=== PATIENT | male | born 1945 | race Caucasian/White ===

== ENCOUNTER 2025-07-15 16:48 | Inpatient (IN) | payer OTHER, SELFPAY ==
[2025-07-15] VITALS (8 sets, daily range): BP systolic 108–137; BP diastolic 59–103; BMI 10126.5; BMI 26.4
[2025-07-15 15:10] LABS: Hematocrit 34.3 % (39.0-52.0); Hemoglobin 11.9 g/dL (13.0-18.0); Mean Corp Hgb Conc. 34.7 g/dL (33.0-37.0); Mean Corpuscular Volume 78.0 fL (80.0-94.0); Nucleated Red Blood Cells % 0 % (-); Platelet Count 285 10^3/uL (130-400); Red Cell Dist. Width 15.4 % (11.5-14.5)
--- NOTE | 2025-07-15 15:11 | ED.GENMED ---
History of Present Illness
General
Chief Complaint: Wound Check/Suture Removal
Source: patient and ambulance crew
Exam Limitations: none
Time Seen by Provider: 07/15/25 15:01
Nursing documentation reviewed up to this point in time: agreed with
History of Present Illness
History of Present Illness:
80-year-old male with a past medical history of paraplegia after fall off of a porch in the 60s with chronic urinary retention requiring Oakley catheter who presents to the emergency department via EMS from home where he lives with a dry cleaner presser for
evaluation of sacral wound. Apparently patient had visiting dry cleaner presser today who evaluated his sacral wound�it sounds like this has been generally worsening over time and there was noted to be discharge and foul odor which prompted ER referral.
Patient says that he cannot feel his bottom and so he has not had any pain. He has not noticed fever or chills or any other acute complaints.
Review of Systems
Review of Systems
All Other Systems: ROS reviewed and negative except as documented in HPI and ROS
Constitutional: Denies fever
Respiratory: Denies trouble breathing
Cardiac: Denies chest pain
ABD/GI: Denies abdominal pain
Skin: Reports other (Sacral wound)
Phy Exam
Physical Exam
Physical Exam:
General: Awake, alert, oriented x 3; very hard of hearing; no acute distress
Head: Normocephalic, atraumatic
Eyes: Conjunctiva normal
Throat: Airway intact, handling secretions
Neck: Trachea midline
Lungs: Breathing comfortably with no respiratory distress
Heart: Regular rate
Abd: Soft, non distended, nontender; chronic Oakley catheter noted
Rectal: Significant external hemorrhoids noted
Skin: Patient has unstageable sacral wound which probes at least 3 cm deep with foul odor and purulent drainage (pictured below)
Extremities: Warm and well-perfused, marked edema with chronic venous stasis changes bilaterally
Scores
Heart Failure Risk
Heart Failure Risk Score: Not Applicable
Heart Score for Chest Pain Patients
STEMI patient?: Not applicable
Withdrawal Assessment of Alcohol
Withdrawal Assessment Completed?: Not applicable
Course
Orders/Labs/Results
Orders:
Orders
07/15/25 15:05
CBC/With Diff [Complete Blood Count/With Diff] Urgent
CMP [Comprehensive Metabolic Panel] Urgent
07/15/25 15:08
Wound Culture [Wound/Abscess/Other Culture] Urgent
CURTIS Source: Sacral
Specimen Description:
Date Specimen was Collected: 07/15/25
Time Specimen was Collected: 15:22
07/15/25 15:10
WOUND/OSTOMY CONSULT Routine
Reason for Consult: sacral wound
07/15/25 15:17
Piperacillin/Tazo 3.375 Gram [Zosyn] 3.375 gram in 50 ml IV NOW
Vancomycin [Vancocin] 2,000 mg 0.9% Sodium Chloride 500 ml [Nss] 500 ml IV NOW
07/15/25 15:21
Lactate Level [Lactic Acid] Urgent
07/15/25 15:26
Osmolality, Random Urine Urgent
Urine Sodium Urgent
07/15/25 15:29
NEPHROLOGY CONSULT Urgent
Consulting Provider: Janay Carreon
Was physician already notified: Yes
07/15/25 15:30
Blood Culture Q30M
CURTIS Source: Blood/Venous
Specimen Description:
07/15/25 16:00
Blood Culture Q30M
CURTIS Source: Blood/Venous
Specimen Description:
Abnormal Lab Results
07/15/25
15:05
WBC 18.3 H 10^3/uL
(4.8-10.8)
RBC 4.40 L 10^6/uL
(4.70-6.10)
Hgb 11.9 L g/dL
(13.0-18.0)
Hct 34.3 L %
(39.0-52.0)
MCV 78.0 L fL
(80.0-94.0)
RDW 15.4 H %
(11.5-14.5)
Abs Immat Gran (auto) 0.2 H 10^3/uL
(0-0.05)
Absolute Neuts (auto) 16.0 H 10^3/uL
(1.4-6.5)
Absolute Lymphs (auto) 0.5 L 10^3/uL
(1.2-3.4)
Absolute Monos (auto) 1.4 H 10^3/uL
(0.1-0.6)
Immature Gran % 1.3 H %
(0-0.5)
Neutrophils % 87.6 H %
(42.2-75.2)
Lymphocytes % 2.7 L %
(20.5-51.1)
Sodium 121 L mmol/L
(135-145)
Chloride 95 L mmol/L
(98-107)
Carbon Dioxide 19 L mmol/L
(22-30)
BUN 57 H mg/dl
(9-20)
Creatinine 1.4 H mg/dL
(0.7-1.3)
Albumin 3.1 L g/dl
(3.5-5.0)
07/15/25 15:05
07/15/25 15:05
Vital Signs
Initial and Last Documented VS:
Initial Vital Signs
Temp Pulse Ox
36.7 C 100
07/15/25 14:51 07/15/25 14:51
Last Documented Vital Signs
Temp Pulse Resp BP Pulse Ox
36.7 C 97 24 121/103 94
07/15/25 14:51 07/15/25 15:15 07/15/25 15:15 07/15/25 15:00 07/15/25 15:17
MDM/Problems Addressed
Differential Diagnosis Includes:
Sacral wound infection
MDM/Problems Addressed:
80-year-old male who with history as noted presents with scented to the ER for worsening sacral wound with foul odor and drainage�overall concerning for sacral wound infection. Will plan to send wound culture, send basic labs. May need MRI to
evaluate for signs of osteomyelitis as wound tracks quite deep. Will likely need debridement and wound care. Will plan for IV antibiotics, consult in to wound nurse. Discussed with hospitalist service for admission.
Labs reviewed and his CBC showed leukocytosis to 18.3. His heart rate is in the 90s and so added blood cultures as well as a lactate prior to administering antibiotics. Will proceed with empiric antibiotics once blood cultures drawn.
Chemistry shows significant hyponatremia with a sodium of 121. Glucose 75. Will send urine sodium and osmolality. Fluid restrict pending urine studies. Discussed with nephrology for consultation. I also discussed with general surgery for
consultation as I suspect wound will ultimately need debridement.
Chronic conditions affecting care:
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
*Pulse Oximetry
SaO2: 94
Oxygen Mode of Delivery: Room air
Patient hypoxic: no (94%)
*Critical Care Note
Total Time (30-74mins, 75-104mins- exclusive of procedures): Not Applicable
Data Reviewed
Source: patient, records and ambulance crew
Patient Management
Discussion with other providers: Hospitalist (Discussed with hospitalist) and Production Quality Analyst (Discussed with nephrology, discussed with general surgeon)
Escalation/DeEscalation of care consider admission/obs:
Admission indicated
ED Attending Note
-
Portions of this chart may have been created with voice recognition software.� Occasional wrong word or��sound alike� substitutions may have occurred due to the inherent limitations of voice recognition software.
Discharge Plan
Departure
Patient Disposition: Admit
Date of Disposition: 07/15/25
Time of Disposition: 15:18
Admit to doctor: Kevin
Presentation/result/management discussed w/ accepting MD/DO: Hospitalist
Discharge Problem:
Sacral wound, Infected wound, Hyponatremia
Prescriptions:
No Action
aspirin,buffd-calcium carb-mag 325 mg Tablet
325 mg PO DAILYPRN PRN (Reason: headaches)
uccyrpyqjpztd-XX-omoelivzcvbcy 5-10-325 mg/15 mL Liquid
15 ml PO DAILYPRN PRN (Reason: cough)
cholecalciferol (vitamin D3) [Vitamin D3] 25 mcg (1,000 unit) Tablet
25 mcg PO DAILY
polyethylene glycol 3350 17 gram Powder In Packet
17 g PO DAILY 30 Days Qty: 30 0RF
Rx Instructions:
hold if regular bowel movements and/or diarrhea
sennosides-docusate sodium [Senna Plus] 8.6-50 mg Tablet
1 tab PO BID 30 Days Qty: 60 0RF
Rx Instructions:
hold if regular bowel movements or diarrhea
losartan 50 mg tablet
50 mg PO DAILY 30 Days Qty: 30 0RF
Interventions
Interventions:
*Risk Screen - Suicide Last Done: 07/15/25 14:51
*Neglect/Abuse Screening Last Done: 07/15/25 14:51
ED-Skin Assessment Last Done: 07/15/25 15:17
Discharge Date and Time
Print Language: SIERRA LEONEAN
--- NOTE | 2025-07-15 15:22 | WOUNDNOTE ---
Pt has unstageable pressure ulcer on his sacrum upon arrival to ER. Pt was sent here for this wound by home health nurse. Provider documented with pictures in chart. Wound care to be contacted.
[2025-07-15 15:24] LABS: ALT (SGPT) 21 U/L (0-50); AST (SGOT) 31 U/L (17-59); Albumin 3.1 g/dl (3.5-5.0); Alkaline Phosphatase 94 U/L (38-126); Blood Urea Nitrogen 57 mg/dl (9-20); Calcium 8.4 mg/dl (8.4-10.2); Carbon Dioxide 19 mmol/L (22-30); Chloride 95 mmol/L (98-107); Estimated Creatinine Clearance -4 ml/min; Glucose 75 mg/dl (70-99); Potassium 4.7 mmol/L (3.5-5.1); Sodium 121 mmol/L (135-145); Total Protein 6.4 g/dl (6.3-8.2); eGFR 50.81
--- NOTE | 2025-07-15 15:47 | HPS.HSE ---
Addendum entered and electronically signed by Aj Brown MD 07/15/25 17:48:
This is an addendum to H&P written by Annemarie Herron on 07/15/2025. �Patient seen and examined independently with CLINICAL CYTOPATHOLOGIST.
80-year-old male past medical history of paraplegia status post fall resulting in T11 fracture in the , chronic indwelling Oakley catheter, microcytic anemia, right lower extremity DVT status post IVC filter since removed, hypertension,
presenting with infected sacral wound has foul smelling. �Also left ankle wound. �Patient bilateral cerumen impaction with hearing impairment.
Vital signs unremarkable. Sacral decub probing to bone and tracking.�
Labs show sodium of 121. �Creatinine 1.4. �Leukocytosis of 18. �Anemia of 11.9 improved from previously.
Patient with sepsis secondary to infected unstageable sacral decubitus ulcer likely osteomyelitis.� Also with DEEP and hyponatremia likely hypovolemic. �Wound culture, blood cultures. �Vancomycin/Zosyn. Check pelvic MRI.� General surgery consulted
for debridement. �Check urine sodium, osmolality. �Nephrology consulted for hyponatremia.
Debrox for bilateral cerumen impaction.�
Original Note:
Family Physician
-
Family Physician: VINAY Garrido
Chief Complaint
-
Sacral wound with malodorous discharge unable to hear both ears
History of Present Illness
80-year-old male from home where he lives alone however has caregiver for 7 hours from 8 AM to 3 PM he is able to use a Mustapha lift from his ceiling to get onto a wheelchair and prepare his own foods and get self back in the chair. He came to the ER
today due to a sacral wound with discharge that is malodorous. He is unable to feel from his umbilicus down due to prior T11 fracture in the . He also has chronic bilateral leg lymphedema with reported left ankle wound currently wrapped with
Randy wrap's. He states he has wound care coming out Sunday along with a nurse dressing his left ankle he is also complaining he is unable to hear from both ears. This is due to bilateral cerumen impaction the patient was unaware
of. He denies headache, fever, chills, chest pain, palpitations, cough, nausea, vomiting, diarrhea.
He past medical history Paraplegia status post fall resulting in T11 fracture , chronic lymphedema bilateral lower legs chronic indwelling Oakley catheter, microcytic anemia, right femoral shaft fracture s/p surgical fixation 11/24/2022, Right
lower extremity DVT peroneal/popliteal 11/24/2022 with IVC filter placement then removal(01/18/2023), history of COVID 11/24/2022
Medical History
Past Medical History
Past Medical History: Reports Other
Additional Past Medical History:
Paraplegia status post fall resulting in T11 fracture
Chronic indwelling Oakley catheter,
Microcytic anemia
Right femoral shaft fracture s/p surgical fixation 11/24/2022
Right lower extremity DVT peroneal/popliteal 11/24/2022 with IVC filter placement then removal(01/18/2023)
history of COVID 11/24/2022
Past Surgical History: Reports Other
Additional Past Surgical History:
Right femoral shaft fracture s/p surgical fixation 11/24/2022
Right lower extremity DVT peroneal/popliteal 11/24/2022 with IVC filter placement then removal(01/18/2023)
Social History
Tobacco: Non-smoker
Alcohol: None
Drug: None
Personal: Single
Living: Alone
Employment: Disabled
Family History
Family History: Not pertinent
Allergies / Home Medications
Allergies reflects when Allergies were last updated in [employer].
Home Medications with original date entered in [employer]
Allergy/Medication List:
Allergies
Allergy/AdvReac Type Severity Reaction Status Date / Time
No Known Allergies Allergy Unverified 11/24/22 13:46
Home Medications
aspirin,buffered (calcium carbonate-magnesium) 325 mg tablet (Bufferin) 325 mg PO DAILYPRN PRN headaches 11/24/22
cephalexin 500 mg capsule 500 mg PO QID 07/15/25
Review of Systems
-
History Source: Patient
A 12 point ROS was completed and negative except as noted: Yes
Constitutional: Denies Fatigue or Chills
EENT: Reports Other (Unable to hear both ears due to bilateral cerumen impactions); Denies Sore Throat or Runny Nose
Respiratory: Denies Cough or Trouble Breathing
Cardiac: Denies Chest Pain, Diaphoresis or Palpitations
Abdomen/GI: Reports Other (Chronic Oakley catheter); Denies Abdominal Pain, Nausea, Vomiting or Diarrhea
: Reports Oakley (Chronic Oakley catheter POA)
Musculoskeletal: Reports Edema (Chronic bilateral leg lymphedema with reported chronic left ankle wound per patient Randy wrap's in place on admission); Denies Joint Pain
Skin: Reports Other (Unstageable sacral/right buttocks wound); Denies Itching or Rash
Neurological: Denies Dizzy or Headache
Endocrine: Reports No Symptoms
Hematologic/Lymphatic: Reports No Symptoms
Psych: Reports Calm
Physical Exam
Vital Signs
Vital Signs
Temp Pulse Resp BP Pulse Ox
98.0 F 97 24 121/103 94
07/15/25 14:51 07/15/25 15:15 07/15/25 15:15 07/15/25 15:00 07/15/25 15:17
Physical Exam
General: No Fever or Chills
HEENT: NormoCephalic, Anicteric, PERRLA, [place] Conjunctivae, No Ptosis, Hearing Impaired (Due to bilateral cerumen impaction) and Other (Missing most dentition)
Respiratory: Clear; No Wheezes, Rales or Rhonchi
Cardiac: S1/S2, Regular Rhythm and Peripheral Edema (Chronic bilateral leg lymphedema); No Murmur, Rub or Gallop
Breast: Deferred by me
GI: Soft, Non Tender, Non Distended, Normal Bowel Sounds and No Hepatosplenomegaly
Rectal: Deferred by Provider
Genito-urinary: Oakley (Chronic present on admission)
Musculoskeletal: No Clubbing, No Cyanosis, Edema, Left Lower Extremity (Chronic lymphedema) and Edema, Right Lower Extremity (Chronic lymphedema); No Edema, Left Upper Extremity or Edema, Right Upper Extremity
Skin: Warm, Dry and Decubitus Ulcers (Unstageable sacral/right buttocks, reported left ankle wound underneath of current Randy wrap's); No Rash
Neuro: AO x 3, Cranial Nerves Intact and Other (Unable to hear due to bilateral cerumen impaction, paraplegia from umbilicus down); No Slurred Speech, Facial Droop, Tremors or Sedated
Psych: Calm
Laboratory Results
-
07/15/25 15:05
07/15/25 15:05
Laboratory Results
Total Bilirubin 0.6 mg/dl (0.2-1.3) 07/15/25 15:05
AST 31 U/L (17-59) 07/15/25 15:05
ALT 21 U/L (0-50) 07/15/25 15:05
Alkaline Phosphatase 94 U/L (38-126) 07/15/25 15:05
Data Reviewed
-
Lab Data: Labs Reviewed by me
Impression/Plan
-
Impression/plan:
Admit to MedSurg
#Sepsis secondary to infected sacral wound unstageable/
#History of paraplegia status post fall resulting in T11 fracture 1960s
- WBC 18.3 with left shift, HR 97 , 121/103
- Consult surgery Dr. Mckeon aware
- Consult wound care
- IV vancomycin IV Zosyn
-Follow CBC, CMP
- PT/OT consult
- MRI sacrum pelvis to rule out osteo
#Left ankle wound POA due to paraplegia
#Chronic lymphedema bilateral lower legs
-Consult wound care
Patient with bilateral Randy wrap's in place to lower legs
#Hyponatremia likely hypovolemic
NA 121
To be followed by nephro
-IV NSS 80 cc an hour
-Urine NA, urine Osmo, serum Osmo, TSH with free T4 reflex
#Bilateral cerumen impaction patient unable to hear
Start Debrox
#Chronic indwelling Oakley catheter
#Deep
creat 1.4/ bun 57 prior 0.9
- Consult nephro Dr. Carreon aware
#HTn to be established
Bp 121/103 will monitor patient denies headache, chest pain, shortness of breath
#Anemia microcytic
Hgb 11.9 appears better than baseline prior baseline 8.09 November 2022
#Right femoral shaft fracture status post surgical fixation 11/24/2022
#Right lower extremity DVT peroneal/popliteal 11/24/2022 with IVC filter placement then removal(01/18/2023)
#History of COVID 11/24/2022
DVT prophylaxis
Subcu heparin
Full code
[2025-07-15] MEDS: ZOSYN 50 IV ×2 (15:55→22:10)
--- NOTE | 2025-07-15 16:05 | W.CON.NEPH ---
Consultation
-
Date/Time Consultation Requested: 07/15/25 1529
Date/Time Consultation Performed: 07/15/25 1615
Requesting Provider: Bernard Ahumada
Performing Provider: Janay John
Reason for Consultation: Hypoantremia
Medical History
-
Chief Complaint: Sacral wound with malodorous discharge and unable to hear both ears
History of Present Illness:
80-year-old male with past medical history Paraplegia status post fall resulting in T11 fracture , chronic lymphedema bilateral lower legs chronic indwelling Falk catheter, microcytic anemia, right femoral shaft fracture s/p surgical fixation
11/24/2022, Right lower extremity DVT peroneal/popliteal 11/24/2022 with IVC filter placement then removal(01/18/2023), history of COVID 11/24/2022 who lives at home alone however has caregiver for 7 hours from 8 AM to 3 PM he is able to use a [place]apha
lift from his ceiling to get onto a wheelchair and prepare his own foods and get self back in the chair. He came to the ER today due to a sacral wound with discharge that is malodorous. He states he has wound care coming out Sunday
along with a nurse evaluating sacral wound and dressing his left ankle. he is also complaining he is unable to hear from both ears. This is due to bilateral cerumen impaction the patient was unaware of. He denies headache, fever, chills, chest
pain, cough, nausea, vomiting, diarrhea.
He found to be in sepsis from unstageable sacral wound possible with OM. Labs noted cr 1.4(last cr 0.9 in 2022), sodium 121, bicarb 19, bun 57. WBC 18.3.
He reports having chr hyponatremia but no fluid restriction that he follows.
difficult historian due to hearing problem, he was able to answer when questions written down.
Past Medical History
Paraplegia status post fall resulting in T11 fracture
Chronic indwelling Falk catheter,
Microcytic anemia
Right femoral shaft fracture s/p surgical fixation 11/24/2022
Right lower extremity DVT peroneal/popliteal 11/24/2022 with IVC filter placement then removal(01/18/2023)
history of COVID 11/24/2022
Past Medical History: Other
Past Surgical History: Other (Right femoral shaft fracture s/p surgical fixation 11/24/2022 Right lower extremity DVT peroneal/popliteal 11/24/2022 with IVC filter placement then removal(01/18/2023))
Social History
Tobacco: Non-Smoker
Alcohol: None
Drug: None
Personal: Single
Living: Alone
Employment: Disabled
Family History
Family History: Not Pertinent
Allergies / Home Medications
Allergy/AdvReac Type Severity Reaction Status Date / Time
No Known Allergies Allergy Unverified 11/24/22 13:46
�Medication �Instructions �Recorded �Confirmed �Type
aspirin,buffered (calcium 325 mg PO DAILYPRN PRN headaches 11/24/22 07/15/25 History
carbonate-magnesium) 325 mg tablet
(Bufferin)
cephalexin 500 mg capsule 500 mg PO QID 07/15/25 07/15/25 History
Review of Systems
-
All other systems: Negative unless noted (difficult historian due to hearing proble, he was able to answer when questions written down )
Physical Exam
Vital Signs
Vital Signs
Temp Pulse Resp BP Pulse Ox
98.0 F 97 24 121/103 94
07/15/25 14:51 07/15/25 15:15 07/15/25 15:15 07/15/25 15:00 07/15/25 15:17
Lab Results
WBC 18.3 10^3/uL (4.8-10.8) H 07/15/25 15:05
RBC 4.40 10^6/uL (4.70-6.10) L 07/15/25 15:05
Hgb 11.9 g/dL (13.0-18.0) L 07/15/25 15:05
Hct 34.3 % (39.0-52.0) L 07/15/25 15:05
Plt Count 285 10^3/uL (130-400) 07/15/25 15:05
Sodium 121 mmol/L (135-145) L 07/15/25 15:
Potassium 4.7 mmol/L (3.5-5.1) 07/15/25 15:
Chloride 95 mmol/L (98-107) L 07/15/25 15:
Carbon Dioxide 19 mmol/L (22-30) L 07/15/25 15:
BUN 57 mg/dl (9-20) H 07/15/25 15:
Creatinine 1.4 mg/dL (0.7-1.3) H 07/15/25 15:
eGFR 50.81 07/15/25 15:
Glucose 75 mg/dl (70-99) 07/15/25 15:05
Calcium 8.4 mg/dl (8.4-10.2) 07/15/25 15:
Albumin 3.1 g/dl (3.5-5.0) L 07/15/25 15:05
Physical Exam
General: Awake, Alert, Oriented, AOx3 and No Distress
HEENT: EOMI, Anicteric, Conjunctivae Clear, Facial Symmetry and Neck Supple
Respiratory: Clear, Normal Excursion and Nonlabored Respirations
Cardiac: S1/S2 and Regular Rate/Rhythm
Breast: Deferred by me
Abdomen: Soft, Nontender and Nondistended
Genito-urinary: Clear Urine (chr falk)
Musculoskeletal: Edema (1+ chronic)
Skin: No Rash
Neuro: Other (paraplegic)
Psych: Appropriate
Data Reviewed
-
Labs: Labs Reviewed by me and Discussed with Patient
Assessment/Plan
-
IMP:
DEEP
Hyponatremia likely hypovolemic
Sepsis secondary to infected sacral wound unstageable
History of paraplegia status post fall resulting in T11 fracture 1960s
Left ankle wound POA due to paraplegia
Chronic lymphedema bilateral lower legs
Bilateral cerumen impaction patient unable to hear
Chronic indwelling Falk catheter
HTn
Anemia microcytic
Right femoral shaft fracture status post surgical fixation 11/24/2022
Right lower extremity DVT peroneal/popliteal 11/24/2022 with IVC filter placement then removal(01/18/2023)
History of COVID 11/24/2022
PLan:
A/w sepsis from decub wound
Hyponatremia-suspect hypovolemia, await urine studies
cont isotonic fluids and rpeat labs later today
if sodium worsens could change to HTS
normal TSH, FR 48 ounces/day
DEEP-possible prerenal too
follow UOP, monitor cr with IVF
BP stable
abx per primary
d/w pt
--- NOTE | 2025-07-15 16:58 | WOUNDNOTE ---
[facility] RN note: Patient admitted with sepsis. Patient lives alone and has caregivers 7 hours a day. He has a lift to get to wheelchair.
See H&P for complete history.
PMH: from H+P: 'Paraplegia status post fall resulting in T11 fracture 1960s
Chronic indwelling Oakley catheter,
Microcytic anemia
Right femoral shaft fracture s/p surgical fixation 11/24/2022
Right lower extremity DVT peroneal/popliteal 11/24/2022 with IVC filter placement then removal(01/18/2023)
history of COVID 11/24/2022
Past Surgical History: Reports Other
Additional Past Surgical History:
Right femoral shaft fracture s/p surgical fixation 11/24/2022
Right lower extremity DVT peroneal/popliteal 11/24/2022 with IVC filter placement then removal(01/18/2023)'
Wound Location and type/assessment: Patient admitted with: Stage 4 R ischial pressure injury to bone, pink with some yellow tissue. R posterior hip stage 1 pressure injuries. Sacral crease stage 1 pressure injury. L heel stage 1 pressure injury. R
heel blanchable red. Nerissa/scrotal/penis red suspect r/t moisture. L lateral ankle unstageable pressure injury dark pink with some rdz slough. L lateral calf linear red guevara suspect r/t muscle waisting and pressure. R lateral foot dry black callus vs
dry necrotic ulcer. +2 LE edema. Pedal pulses heard via portable Doppler. He wears bilateral knee high Tubigrip with Randy wraps on top. L lateral upper calf with red ecchymotic abrasion suspect from compression. Lower back with blanchable red linear
guevara. Coccyx/R buttocks red from pressure and moisture.
Appetite: prepares his meals at home as per chart review.
Pressure redistribution devices in place: ED stretcher. Stefan, roller shop supervisor obtained a [facility] air bed. PCT Raine aware to have ED staff transfer patient to air bed.
Plan: R ischial packing/dressing applied. L lateral ankle dressing changed. Silicone border foam applied to sacrum, R posterior hip. Foam dressing applied to L heel and L lateral upper calf. Knee high Tubigrips reapplied. Patient's soft heel relief
boots reapplied. Pillow under le's. Patient turned to L semi side lying position using an air chair cushion with help from AMIRA Ni. Patient seen with Dr. Brown who assessed patient's R ischium noting wound to bone. Hospitalist approved local
wound care, air mattress and knee high compression. Fost[place] texted with JULISA Bull earlier re: placing patient onto an air mattress.
Care plan to be updated and will follow as needed.
Note to case management of equipment requested for discharge: Air mattress if not already in place.
Recommend follow up at wound care center upon discharge.
--- NOTE | 2025-07-15 17:00 | WOUNDNOTE ---
L CALF (UPPER ANTERIOR LATERAL), NEAR KNEE
--- NOTE | 2025-07-15 17:24 | WOUNDNOTE ---
R ISCHIUM (TO BONE)
[2025-07-15] MEDS: VANCOCIN 540 MG IV (17:58)
--- NOTE | 2025-07-15 19:24 | PHA.VAN.IN ---
Assessment
- Assessment
Renal Function: Other
Concomitant Antimicrobials: PIPERACILLIN/TAZO
Plan
- Plan
Initial / Loading Dose: VANCO 2000 MG IV ~ 1800
Maintenance Regimen: Dose by random level
Monitoring: Random vanco ordered 07/16 w. am labs
Pharmacokinetics Vancomycin I
- -
Patient Age: 80
Patient Sex: Male
Vancomycin Day #: 1
Indication: Skin And Soft Tissue
Requesting Provider: Gopal MCLEAN
Height / Weight:
Height 6 ft 4 in
Actual Weight 98.3 kg
Pertinent Past Medical History: Pt w. sepsis second to infected unstageable sacral decubitus ulcer & w. DEEP
- Vital Signs / Lab Results
Temp Pulse Resp BP Pulse Ox
97.8 F 90 18 135/67 94
07/15/25 19:16 07/15/25 19:16 07/15/25 19:16 07/15/25 19:16 07/15/25 19:16
Lab Results - Hematology
07/15/25
15:05
WBC 18.3 H
Lab Results - Chemistry
07/15/25
15:05
BUN 57 H
Creatinine 1.4 H
Estimated Creat Clear -4
Albumin 3.1 L
07/15/25
15:30
Lactic Acid 1.1
[2025-07-15] MEDS: NSS 1000 IV (20:30)
[2025-07-15] MEDS: HEPARIN 5000 UNITS SC (21:00)
[2025-07-15] MEDS: DEBROX EAR DROPS 1 DROP OTIC (21:00)
[2025-07-15] MEDS: DESENEX/MITRAZOL/ZEASORB 1 APPLIC TOPICAL (21:00)
[2025-07-15] MEDS: DAKIN'S SOLUTION 0.125% 1/4 STRENGTH 473 ML TOPICAL (21:00)
[2025-07-15] MEDS: SANTYL OINTMENT 1 APPLIC TOPICAL (21:00)
[2025-07-15 21:43] LABS: Blood Urea Nitrogen 53 mg/dl (9-20); Calcium 8.6 mg/dl (8.4-10.2); Carbon Dioxide 21 mmol/L (22-30); Chloride 96 mmol/L (98-107); Estimated Creatinine Clearance 52 ml/min; Glucose 72 mg/dl (70-99); Potassium 4.9 mmol/L (3.5-5.1); Sodium 126 mmol/L (135-145); eGFR 50.81
[2025-07-16] MEDS: ZOSYN 50 IV ×4 (03:30→21:12)
[2025-07-16 06:00] VITALS: BMI 26.2
[2025-07-16 07:43] VITALS: BP 104/68
[2025-07-16 07:54] LABS: Hematocrit 33.0 % (39.0-52.0); Hemoglobin 10.8 g/dL (13.0-18.0); Mean Corp Hgb Conc. 32.7 g/dL (33.0-37.0); Mean Corpuscular Volume 78.4 fL (80.0-94.0); Nucleated Red Blood Cells % 0 % (-); Platelet Count 291 10^3/uL (130-400); Red Cell Dist. Width 15.9 % (11.5-14.5)
[2025-07-16] MEDS: NSS 1000 IV ×2 (07:57→21:13)
[2025-07-16] MEDS: SANTYL OINTMENT 1 APPLIC TOPICAL ×2 (07:58→20:01)
[2025-07-16] MEDS: HEPARIN 5000 UNITS SC ×2 (07:58→20:02)
[2025-07-16] MEDS: DEBROX EAR DROPS 1 DROP OTIC (07:58)
[2025-07-16] MEDS: DESENEX/MITRAZOL/ZEASORB 1 APPLIC TOPICAL ×2 (07:59→20:03)
[2025-07-16] MEDS: DAKIN'S SOLUTION 0.125% 1/4 STRENGTH 473 ML TOPICAL ×2 (08:00→20:03)
[2025-07-16 08:56] LABS: ALT (SGPT) 18 U/L (0-50); AST (SGOT) 21 U/L (17-59); Albumin 2.6 g/dl (3.5-5.0); Alkaline Phosphatase 87 U/L (38-126); Blood Urea Nitrogen 48 mg/dl (9-20); Calcium 8.2 mg/dl (8.4-10.2); Carbon Dioxide 20 mmol/L (22-30); Chloride 102 mmol/L (98-107); Estimated Creatinine Clearance 56 ml/min; Glucose 63 mg/dl (70-99); Potassium 4.6 mmol/L (3.5-5.1); Sodium 128 mmol/L (135-145); Total Protein 5.6 g/dl (6.3-8.2); eGFR 55.53
--- NOTE | 2025-07-16 08:59 | PHA.VAN.FU ---
Vancomycin Assessment / Plan
- Assessment
Renal Function: Stable
WBC's are: Trending Down
In the past 24 hrs, patient has been: Afebrile
Concomitant Antimicrobials: piperacillin/tazobactam
- Assessment - Therapeutic Drug Monitoring
Random Level: 15.2 - drawn ~13.5H after 2g loading dose
- Dosing Plan
Dosing by Level: Re-dose today (Vanc 1000mg)
- Monitoring Plan
Random Level: 07/17 600
- Follow Up
Pharmacy will continue to follow.
Vancomycin Follow UP
- -
Patient Age: 80
Patient Sex: Male
Vancomycin Day #: 2
Indication: Skin And Soft Tissue
Requesting Provider: Gopal MCLEAN
Pertinent Antimicrobial Allergies:
NKDA
Height / Weight:
Height 6 ft 4 in
Actual Weight 97.749 kg
Pertinent Past Medical History: Paraplegia
- Vital Signs / Lab Results
Temp Pulse Resp BP Pulse Ox
97.8 F 82 18 104/68 97
07/16/25 07:43 07/16/25 07:43 07/16/25 07:43 07/16/25 07:43 07/16/25 07:43
Lab Results - Hematology
07/15/25 07/16/25
15:05 07:29
WBC 18.3 H 13.1 H
Lab Results - Chemistry
07/15/25 07/15/25 07/16/25
15:05 21:14 07:29
BUN 57 H 53 H 48 H
Creatinine 1.4 H 1.4 H 1.3
Estimated Creat Clear -4 52 56
Albumin 3.1 L 2.6 L
07/15/25
15:30
Lactic Acid 1.1
Microbiology Results
07/15/25 15:30 Gram Stain - Preliminary
Sacral
Therapeutic Drug Monitoring
Random Vancomycin 15.2 ug/ml 07/16/25 07:29
--- NOTE | 2025-07-16 09:29 | PTOTSP ---
Received order for PT from the ED and reviewed chart and prior medical record. pt is a paraplegic for many years and has caregiver who uses mechanical lift for transfers. No acute PT needs or goals. PT will sign off.
--- NOTE | 2025-07-16 09:39 | CM ---
CM following re: discharge planning.
Reviewed pt's chart, met with pt.
Pt is an 80 year old very [place] male, admitted with primary dx of Sepsis secondary to infected sacral wound unstageable. PMH: Paraplegia status post fall resulting in T11 fracture 1960s, chronic lymphedema bilateral lower legs chronic indwelling Oakley
catheter, microcytic anemia, right femoral shaft fracture s/p surgical fixation 11/24/2022, Right lower extremity DVT peroneal/popliteal 11/24/2022 with IVC filter placement then removal(01/18/2023), history of COVID 11/24/2022.
pt reports he lives alone in [place], no steps to enter, has caregiver for 7 hours from 8 AM to 3 PM he is able to use a [place] lift from his ceiling to get onto a wheelchair and prepare his own foods and get self back in the chair. Pt has a [place] lift,
star, w/c. Pt reports he has 2 brothers and they live out of state and able to call him with support. Pt reports he is known to [facility] for RN, PT, OT. Pt reports he has 8 hours of caregiver services that provided by [place] [facility] and now is a different agency. Pt expressed his strong desire to return back home with [facility], resumptions of caregiver services and emotional support from his 2 brothers.
PCP: Susan Zavala
Pharmacy: [facility]
D/C plan: per pt's strong request, home with [facility] and resumptions of caregiver services.
CM will follow with discharge plan updates as hospitalization progresses
[2025-07-16 11:13] VITALS: BMI 26.2
[2025-07-16] MEDS: VANCOCIN 200 IV (11:34)
--- NOTE | 2025-07-16 12:22 | W.PN.NEPH.PH ---
Today's Communication / Plan
-
cont NS
Assessment/Plan
-
IMP:
DEEP
Hyponatremia likely hypovolemic
Sepsis secondary to infected sacral wound unstageable
History of paraplegia status post fall resulting in T11 fracture 1960s
Left ankle wound POA due to paraplegia
Chronic lymphedema bilateral lower legs
Bilateral cerumen impaction patient unable to hear
Chronic indwelling Falk catheter
HTn
Anemia microcytic
Right femoral shaft fracture status post surgical fixation 11/24/2022
Right lower extremity DVT peroneal/popliteal 11/24/2022 with IVC filter placement then removal(01/18/2023)
History of COVID 11/24/2022
PLan:
A/w sepsis from decub wound
Hyponatremia-suspect hypovolemia, U osmo 307, U na 36
sodium improving hence cont isotonic fluids another day
normal TSH, FR 48 ounces/day
DEEP-possible prerenal too, cr slow to improve
follow UOP
BP stable
abx per primary , MRI pelvis today
d/w pt
-
-
Date of Service: July 16, 2025
CC / HPI / ROS
-
Chief Complaint:
Hyponatremia, DEEP
History of Present Illness:
sodium better at 128
cr better at 1.3
Bp stable , non oliguric with chr falk
Review of Systems:
no complaints
no pain.no n/v
still hard of hearing inermittently
Labs
-
Labs:
WBC 13.1 10^3/uL (4.8-10.8) H 07/16/25 07:29
RBC 4.21 10^6/uL (4.70-6.10) L 07/16/25 07:29
Hgb 10.8 g/dL (13.0-18.0) L 07/16/25 07:29
Hct 33.0 % (39.0-52.0) L 07/16/25 07:
Plt Count 291 10^3/uL (130-400) 07/16/25 07:29
Sodium 128 mmol/L (135-145) L 07/16/25 07:
Potassium 4.6 mmol/L (3.5-5.1) 07/16/25 07:
Chloride 102 mmol/L (98-107) 07/16/25 07:
Carbon Dioxide 20 mmol/L (22-30) L 07/16/25:
BUN 48 mg/dl (9-20) H 07/16/25 07:29
Creatinine 1.3 mg/dL (0.7-1.3) 07/16/25 07:
eGFR 55.53 07/16/25 07:29
Glucose 63 mg/dl (70-99) L 07/16/25 07:
Calcium 8.2 mg/dl (8.4-10.2) L 07/16/25:
Albumin 2.6 g/dl (3.5-5.0) L 07/16/25 07:29
Physical Exam
-
Vital Signs:
Vital Signs
Temp Pulse Resp BP Pulse Ox
97.8 F 82 18 104/68 97
07/16/25 07:43 07/16/25 07:43 07/16/25 07:43 07/16/25 07:43 07/16/25 08:00
Cardiovascular:: Regular rate and rhythm
Respiratory:: Bilateral: CTA
Lung Excursion:: Normal
Abdomen:: Nontender and Soft
Extremity Edema:: +2: Bilateral:
Falk Catheter: Yes
--- NOTE | 2025-07-16 12:46 | W.PN.HOSP.TC ---
Today's Communication/Plan
-
Assessment / Plan
Assessment / Plan
General: No Apparent Distress, Comfortable, chronically ill-appearing
HEENT: NormoCephalic, Moist mucous membranes, Atraumatic
Respiratory: Clear and Non Labored Respirations
Cardiac: S1/S2 and Regular Rhythm; No Rub or Gallop
GI: Soft, Non Tender, Non Distended and Normal Bowel Sounds
Musculoskeletal: No Edema, no deformity
Skin: Warm and dry, unstageable sacral ulcer
: Oakley catheter in place
Neuro: Awake, Alert, paraplegic
Psych: Calm and cooperative
Mr. Gaytan is an 80-year-old male with a medical history of paraplegia (status post T11 fracture in the 1960s after a fall), chronic indwelling Oakley catheter, RLL DVT (11/24/2022, IVC filter placed and then removed 01/18/2023), chronic bilateral
lower extremity lymphedema, and macrocytic anemia who presents from home where he lives alone with a caregiver for 7 hours a day. He presented due to concern for worsening sacral wound which he is unable to feel due to his paraplegia but reports
has become malodorous.
Sepsis secondary to infected sacral ulcer:
- Presented with leukocytosis and tachycardia
- Continue antibiotics with vancomycin and Zosyn for now
- MRI sacrum/pelvis to rule out osteo
- To be evaluated by general surgery
- Continue local wound care
- PT/OT
Hyponatremia:
- Initial serum sodium 121, appears somewhat chronic
- Giving gentle resuscitative fluids
- Nephrology following, recommend continuing fluids for now and monitor
DEEP:
- Mild with that initial creatinine of 1.4, baseline appears to be around 0.9
- Improved today to creatinine of 1.3
- Continue IV fluids
- Nephrology following
DVT prophylaxis: Subcu heparin
CODE STATUS: Full code
Total time spent on today's encounter was 42 minutes
Anticipated Discharge: 24 - 48 hours
Subjective/Interval History
-
Date of Service: July 16, 2025
Patient was seen and examined at bedside this morning. Currently comfortable. On antibiotics for sacral decubitus ulcer.
Objective Data
-
Labs:
Laboratory Results
07/16/25
07:29
WBC 13.1 H
Hgb 10.8 L
Hct 33.0 L
Plt Count 291
Sodium 128 L
Potassium 4.6
Chloride 102
Carbon Dioxide 20 L
BUN 48 H
Creatinine 1.3
Glucose 63 L
Calcium 8.2 L
Total Bilirubin 0.5
AST 21
ALT 18
Alkaline Phosphatase 87
Vital Signs:
Vital Signs
Temp Pulse Resp BP Pulse Ox
97.8 F 82 18 104/68 97
07/16/25 07:43 07/16/25 07:43 07/16/25 07:43 07/16/25 07:43 07/16/25 08:00
I&O
07/15/25 07/16/25 07/17/25
06:59 06:59 06:59
Output Total 1150 / 1150
Balance -1150 / -1150
Review of Systems
-
History Source: Patient
All other systems: Reviewed and negative
Physical Exam
-
General: No Apparent Distress
[2025-07-16 18:24] VITALS: BP 135/67
--- NOTE | 2025-07-16 19:05 | CON.GS ---
Consultation
-
Date/Time Consultation Performed: 07/16/2025 7:05 PM
Performing Provider: Salazar
Reason for Consultation: Right ischial decubitus wound
Medical History
-
Chief Complaint: Foul-smelling decubitus ulcer
History of Present Illness:
80-year-old male with past medical history of paraplegia status post fall with resultant T11 fracture in the 1960s, chronic indwelling Oakley catheter, history of lower extremity DVT, previous history of right sided gluteal/ischial decubitus wounds
and flap reconstruction in the more distant past.
Patient states he was in his usual baseline state of health until about the last 7 to 10 days when in the evening he began to take note of a dime size change in skin that appeared dark and necrotic in the right ischial gluteal region. He has a
medication tech with him 7 hours daily but reports trouble caring for the site. It has rapidly progressed and he came to the emergency department for evaluation yesterday as the wound was having malodorous discharge.
Past Medical History
Past Medical History: Other (T11 paraplegia status post fall, chronic indwelling Oakley catheter, anemia, lower extremity DVT, history of COVID, previous history of decubitus wounds)
Past Surgical History: Other (Decubitus debridement and flap procedures, ORIF right femoral shaft fracture, IVC placement and removal)
Social History
Tobacco: Non-Smoker
Personal: Single
Living: Alone
Family History
Family History: Reviewed & Not Pertinent
Allergies / Home Medications
Allergy/AdvReac Type Severity Reaction Status Date / Time
No Known Allergies Allergy Unverified 11/24/22 13:46
�Medication �Instructions �Recorded �Confirmed �Type
aspirin,buffered (calcium 325 mg PO DAILYPRN PRN headaches 11/24/22 07/15/25 History
carbonate-magnesium) 325 mg tablet
(Bufferin)
cephalexin 500 mg capsule 500 mg PO QID Infection 07/15/25 07/15/25 History
Review of Systems
-
History Source: Patient
All other systems: Negative unless noted
A 10 point review of systems was completed, and was negative except as per HPI.
Physical Exam
Vital Signs
Temp Pulse Resp BP Pulse Ox
98.1 F 93 18 135/67 96
07/16/25 18:24 07/16/25 18:24 07/16/25 18:24 07/16/25 18:24 07/16/25 18:24
07/15/25 07/16/25 07/17/25
06:59 06:59 06:59
Actual Weight 97.749 kg
Body Mass Index (BMI) 26.2
Lab Results
07/16/25 07:29
07/16/25:29
WBC 13.1 10^3/uL (4.8-10.8) H 07/16/25 07:29
Hgb 10.8 g/dL (13.0-18.0) L 07/16/25 07:
Hct 33.0 % (39.0-52.0) L 07/16/25 07:29
Plt Count 291 10^3/uL (130-400) 07/16/25 07:29
Abs Immat Gran (auto) 0.2 10^3/uL (0-0.05) H 07/16/25 07:29
Neutrophils % 83.9 % (42.2-75.2) H 07/16/25 07:29
Physical Exam
General: Well Developed, Well Nourished, No Apparent Distress, Comfortable and Other (Sitting in hospital bed)
HEENT: Normocephalic, Anicteric and Moist Mucous Membranes
Respiratory: Non Labored Respirations
Cardiac: Regular Rhythm
GI: Soft, Non Tender and Non Distended
Skin: Other (Right ischial and gluteal area with 3 to 4 cm full-thickness open skin wound tunneling into the deep subcutaneous tissues with palpable bone. No necrotic tissue. No significant exudate)
Neuro: AO x 3
Psych: Calm
Assessment / Plan
-
Assessment: 80-year-old male with paraplegia status post fall in the 1960s from T11 fracture presenting with recurrent right ischial decubitus wound.
He has had similar decubitus wounds in this location in the past with flap reconstruction but this was many years ago.
Now presenting with presumably stage IV decubitus ulcer as bone is palpable within subcutaneous tissue space. There is no significant necrotic tissue or sloughing buildup. No surrounding erythema or necrotic dermis.
Plan: MRI report pending however strong clinical suspicion for underlying osteomyelitis/bone involvement.
From a surgical standpoint there does not appear to be necrotic tissue to require debridement or undrained fluid collections which would require drainage.
Would treat locally with Dakin's packing as per current wound care recommendations that are ordered, offloading and maximizing nutrition for healing.
[2025-07-16] MEDS: DEBROX EAR DROPS 3 DROP OTIC (20:01)
[2025-07-16 23:05] VITALS: BP 155/84
[2025-07-17] MEDS: ZOSYN 50 IV ×2 (03:39→09:42)
[2025-07-17 06:00] VITALS: BMI 26.3
[2025-07-17 07:01] VITALS: BP 118/70
[2025-07-17 07:36] LABS: Hematocrit 30.9 % (39.0-52.0); Hemoglobin 10.2 g/dL (13.0-18.0); Mean Corp Hgb Conc. 33.0 g/dL (33.0-37.0); Mean Corpuscular Volume 77.6 fL (80.0-94.0); Nucleated Red Blood Cells % 0 % (-); Platelet Count 293 10^3/uL (130-400); Red Cell Dist. Width 15.8 % (11.5-14.5)
[2025-07-17 08:05] LABS: ALT (SGPT) 17 U/L (0-50); AST (SGOT) 18 U/L (17-59); Albumin 2.4 g/dl (3.5-5.0); Alkaline Phosphatase 89 U/L (38-126); Blood Urea Nitrogen 45 mg/dl (9-20); Calcium 8.3 mg/dl (8.4-10.2); Carbon Dioxide 22 mmol/L (22-30); Chloride 104 mmol/L (98-107); Estimated Creatinine Clearance 60 ml/min; Glucose 87 mg/dl (70-99); Potassium 4.1 mmol/L (3.5-5.1); Sodium 132 mmol/L (135-145); Total Protein 5.3 g/dl (6.3-8.2); eGFR > 60.00
[2025-07-17] MEDS: SANTYL OINTMENT 1 APPLIC TOPICAL (09:32)
[2025-07-17] MEDS: HEPARIN 5000 UNITS SC ×2 (09:32→21:56)
[2025-07-17] MEDS: DESENEX/MITRAZOL/ZEASORB 1 APPLIC TOPICAL ×2 (09:34→21:59)
[2025-07-17] MEDS: DAKIN'S SOLUTION 0.125% 1/4 STRENGTH 473 ML TOPICAL (09:34)
[2025-07-17] MEDS: DEBROX EAR DROPS 1 DROP OTIC (09:34)
--- NOTE | 2025-07-17 10:13 | W.PN.SURGUPD ---
Surgical Update
Surgical Update
Prior documentation and MRI results reviewed suggestive of osteomyelitis. No indication or plan for surgical debridement. Continue with local wound care. Please call with any questions or concerns.
--- NOTE | 2025-07-17 12:16 | PN.CDI ---
CDI
- -
CDI:
Physician Documentation Request
Admit Date: 07/15/25 16:48
Dear Doctor Jaleesa,
Clinical Indicators:
Patient admitted with Sepsis due to sacral ulcer.
07/16 Nephrology PN, 'Hyponatremia-suspect hypovolemia, U osmo 307, U na 36...DEEP-possible prerenal too, cr slow to improve'
07/16 PN, 'DEEP: -Mild with that initial creatinine of 1.4, baseline appears to be around 0.9... Continue IV fluids'
Please clarify the likely relationship between these conditions:
Yes, DEEP is related to/associated with/due to Sepsis
No, DEEP is not related to/associated with/due to Sepsis but it is due to ___. (Please specify)
Unable to determine
Use of terms such as suspected, likely, concern for, or probable (associated with a specific diagnosis that is being evaluated, monitored, or treated as if it exists) are acceptable and can be coded in the inpatient setting, when documented at the
time of discharge.
Thank you,
CLARITZA Flores RN
CDI Specialist
available via tiger text
Please use your independent medical judgment in providing your response.
--- NOTE | 2025-07-17 12:32 | PN.CDI ---
CDI
- -
CDI:
Physician Documentation Request
Admit Date: 07/15/25 16:48
Dear Doctor Jaleesa,
Clinical Indicators:
Patient admitted with sepsis due to sacral ulcer; Additional pressure injuries noted on admission:
07/15 [facility] RN note/assessment: Sacrum Stage 1 Pressure Injury, POA
Right Hip Stage 1 Pressure Injury, POA
Left Heel Stage 1 Pressure Injury, POA
Left Lateral Ankle Unstageable Pressure Injury, POA
Right Ischium Stage 4 Pressure Injury, POA
Treatment: Wound care, off loading, air mattress
Physician documentation of the type and location of wounds is required for compliant documentation. Based on the above clinical findings and your assessment, please provide the following in your progress note:
1. Location of the ulcer/wound, including laterality.
2. Type (etiology) of ulcer/wound:
- Pressure (decubitus) ulcer
- Other
- Unable to determine
3. If a pressure ulcer, please also include the stage* of the ulcer:
- Stage 1 - Skin intact, non-blanchable redness
- Stage 2 - Partial thickness loss of dermis, includes intact or open blister
- Stage 3 - Full thickness tissue not including bone, tendon or muscle
- Stage 4 - Full thickness tissue loss, including exposed bone, tendon or muscle
- Unstageable - Full thickness loss in which the base of the ulcer is covered by slough (yellow, rdz, madison, green or brown) and/or eschar (rdz, brown or black) in the wound bed.
- Unable to determine
Use of terms such as suspected, likely, concern for, or probable (associated with a specific diagnosis that is being evaluated, monitored, or treated as if it exists) are acceptable and can be coded in the inpatient setting, when documented at the
time of discharge.
Thank you,
CLARITZA Flores RN
CDI Specialist
available via tiger text
Please use your independent medical judgment in providing your response.
*Source: National Pressure Ulcer Advisory Panel (NPUAP)
--- NOTE | 2025-07-17 12:56 | W.PN.HOSP.TC ---
Addendum entered and electronically signed by Sridhar Lazcano DO 07/17/25 14:25:
Additional diagnosis:
- Wounds
Sacrum Stage 1 Pressure Injury, POA
Right Hip Stage 1 Pressure Injury, POA
Left Heel Stage 1 Pressure Injury, POA
Left Lateral Ankle Unstageable Pressure Injury, POA
Right Ischium Stage 4 Pressure Injury, POA
Clarification:
Yes, DEEP is related to/associated with/due to Sepsis
Original Note:
Today's Communication/Plan
-
Assessment / Plan
Assessment / Plan
General: No Apparent Distress, Comfortable
HEENT: NormoCephalic, Moist mucous membranes, Atraumatic
Respiratory: Clear and Non Labored Respirations
Cardiac: S1/S2 and Regular Rhythm; No Rub or Gallop
GI: Soft, Non Tender, Non Distended and Normal Bowel Sounds
Musculoskeletal: No Edema, no deformity
Skin: Warm and dry, sacral/ischial decubitus ulcer tracking to bone
: Oakley catheter in place
Neuro: Awake, Alert, paraplegic
Psych: Calm and cooperative
Mr. Gaytan is an 80-year-old male with a medical history of paraplegia (status post T11 fracture in the 1960s after a fall), chronic indwelling Oakley catheter, RLL DVT (11/24/2022, IVC filter placed and then removed 01/18/2023), chronic bilateral
lower extremity lymphedema, and macrocytic anemia who presents from home where he lives alone with a caregiver for 7 hours a day. He presented due to concern for worsening sacral wound which he is unable to feel due to his paraplegia but reports
has become malodorous.
Sepsis secondary to infected sacral ulcer:
- Now with bacteremia, blood cultures growing Staph aureus, sacral wound cultures growing MSSA
- MRI of pelvis shows sacral osteo with no fluid collections
- No need for debridement, general surgery signed off
- Clinically improving, leukocytosis resolving, repeat blood cultures pending
- Continue treatment with vancomycin, discontinue Zosyn
- ID consulted
- Continue local wound care
- PT/OT
Hyponatremia:
- Likely hypovolemic
- Initial serum sodium 121, appears somewhat chronic
- Gradually improving with IV fluids, serum sodium 132 today
- Nephrology following, recommend continuing fluids for now and monitor
DEEP:
- Mild with that initial creatinine of 1.4, baseline appears to be around 0.9
- Improved today to creatinine of 1.2
- Continue IV fluids
- Nephrology following
DVT prophylaxis: Subcu heparin
CODE STATUS: Full code
Total time spent on today's encounter was 40 minutes
Anticipated Discharge: 24 - 48 hours
Subjective/Interval History
-
Date of Service: July 17, 2025
Patient was seen and examined at bedside this morning. Underwent MRI which revealed osteomyelitis but no fluid collections. Also revealed Oakley catheter balloon inflated in the prostatic urethra which is being addressed currently.
Objective Data
-
Labs:
Laboratory Results
07/17/25
07:11
WBC 10.4
Hgb 10.2 L
Hct 30.9 L
Plt Count 293
Sodium 132 L
Potassium 4.1
Chloride 104
Carbon Dioxide 22
BUN 45 H
Creatinine 1.2
Glucose 87
Calcium 8.3 L
Total Bilirubin 0.5
AST 18
ALT 17
Alkaline Phosphatase 89
Vital Signs:
Vital Signs
Temp Pulse Resp BP Pulse Ox
98.5 F 73 16 118/70 97
07/17/25 07:01 07/17/25 07:01 07/17/25 07:01 07/17/25 07:01 07/17/25 07:01
I&O
07/16/25 07/17/25 07/18/25
06:59 06:59 06:59
Intake Total 1530 / 1530
Output Total 1150 / 1150 1500 / 1500
Balance -1150 / -1150
Review of Systems
-
History Source: Patient
All other systems: Reviewed and negative
Physical Exam
-
General: No Apparent Distress
--- NOTE | 2025-07-17 13:46 | W.PN.NEPH.PH ---
Today's Communication / Plan
-
cap IVF
Assessment/Plan
-
IMP:
DEEP
Hyponatremia likely hypovolemic
Sepsis secondary to infected sacral wound unstageable
History of paraplegia status post fall resulting in T11 fracture 1960s
Left ankle wound POA due to paraplegia
Chronic lymphedema bilateral lower legs
Bilateral cerumen impaction patient unable to hear
Chronic indwelling Falk catheter
HTn
Anemia microcytic
Right femoral shaft fracture status post surgical fixation 11/24/2022
Right lower extremity DVT peroneal/popliteal 11/24/2022 with IVC filter placement then removal(01/18/2023)
History of COVID 11/24/2022
Plan:
cap IVF today
follow BMP
follow po intake
-
-
Date of Service: July 17, 2025
CC / HPI / ROS
-
Chief Complaint:
Hyponatremia, DEEP
History of Present Illness:
sodium better at 132
cr better at 1.2
BP stable , non oliguric with chr falk
Review of Systems:
no complaints
no pain
still hard of hearing
Labs
-
Labs:
WBC 10.4 10^3/uL (4.8-10.8) 07/17/25 07:11
RBC 3.98 10^6/uL (4.70-6.10) L 07/17/25 07:11
Hgb 10.2 g/dL (13.0-18.0) L 07/17/25 07:11
Hct 30.9 % (39.0-52.0) L 07/17/25 07:11
Plt Count 293 10^3/uL (130-400) 07/17/25 07:11
Sodium 132 mmol/L (135-145) L 07/17/25 07:11
Potassium 4.1 mmol/L (3.5-5.1) 07/17/25 07:11
Chloride 104 mmol/L (98-107) 07/17/25 07:11
Carbon Dioxide 22 mmol/L (22-30) 07/17/25 07:11
BUN 45 mg/dl (9-20) H 07/17/25 07:11
Creatinine 1.2 mg/dL (0.7-1.3) 07/17/25 07:11
eGFR > 60.00 07/17/25 07:11
Glucose 87 mg/dl (70-99) 07/17/25 07:11
Calcium 8.3 mg/dl (8.4-10.2) L 07/17/25 07:11
Albumin 2.4 g/dl (3.5-5.0) L 07/17/25 07:11
Physical Exam
-
Vital Signs:
Vital Signs
Temp Pulse Resp BP Pulse Ox
98.5 F 73 16 118/70 97
07/17/25 07:01 07/17/25 07:01 07/17/25 07:01 07/17/25 07:01 07/17/25 07:01
Cardiovascular:: Regular rate and rhythm
Respiratory:: Bilateral: Coarse
Lung Excursion:: Normal
Abdomen:: Nontender and Soft
Bowel Sounds:: Normal
Extremity Edema:: None: Bilateral:
[2025-07-17] MEDS: NSS IV (13:51)
--- NOTE | 2025-07-17 13:53 | PHA.VAN.FU ---
Vancomycin Assessment / Plan
- Assessment
Renal Function: SCR Decreasing
WBC's are: WNL
In the past 24 hrs, patient has been: Afebrile
Concomitant Antimicrobials: piperacillin/tazobactam
- Assessment - Therapeutic Drug Monitoring
Random Level: 17.1 - drawn ~19.5H after previous dose of 1000mg
- Dosing Plan
Dosing by Level: Hold off on dosing today
- Monitoring Plan
Random Level: 07/18 06
- Follow Up
Pharmacy will continue to follow.
Vancomycin Follow UP
- -
Patient Age: 80
Patient Sex: Male
Vancomycin Day #: 3
Indication: Skin And Soft Tissue
Requesting Provider: Gopal MCLEAN
Pertinent Antimicrobial Allergies:
NKDA
Height / Weight:
Height 6 ft 4 in
Actual Weight 98.067 kg
Pertinent Past Medical History: Paraplegia
- Vital Signs / Lab Results
Temp Pulse Resp BP Pulse Ox
98.5 F 73 16 118/70 97
07/17/25 07:01 07/17/25 07:01 07/17/25 07:01 07/17/25 07:01 07/17/25 07:01
Lab Results - Hematology
07/15/25 07/16/25 07/17/25
15:05 07:29 07:11
WBC 18.3 H 13.1 H 10.4
Lab Results - Chemistry
07/15/25 07/15/25 07/16/25
15:05 21:14 07:29
BUN 57 H 53 H 48 H
Creatinine 1.4 H 1.4 H 1.3
Estimated Creat Clear -4 52 56
Albumin 3.1 L 2.6 L
07/17/25
07:11
BUN 45 H
Creatinine 1.2
Estimated Creat Clear 60
Albumin 2.4 L
07/15/25
15:30
Lactic Acid 1.1
Microbiology Results
07/15/25 15:34 Blood Culture - Preliminary
Blood/Venous Staphylococcus aureus
Gram Stain - Preliminary
07/15/25 15:34 Blood Culture - Preliminary
Blood/Venous Staphylococcus aureus
Gram Stain - Preliminary
07/15/25 15:30 Wound Culture - Final
Sacral S aureus-Methicillin Sensitive
Gram Stain - Final
07/15/25 22:59 MRSA Screen - Final
Nose No Methicillin Resistant Staphylococcus aureus isolated.
Therapeutic Drug Monitoring
Random Vancomycin 17.1 ug/ml 07/17/25 07:11
--- NOTE | 2025-07-17 14:11 | CON.ID ---
Consultation
-
Date/Time Consultation Requested: July 17, 2025 1303
Date/Time Consultation Performed: July 17, 2025 1410
Requesting Provider: Dr. Sridhar Bond
Performing Provider: Dr. Denice Whitman
Reason for Consultation: Bacteremia. Sacrall wound +MSSA
Chief Complaint / Past History
Chief Complaint
Worsening sacral wound
History of Present Illness
80-year-old male with history of T11 fracture resulting in paraplegia in 1960s neurogenic bladder with chronic Oakley who presented to the ER on July 15 due to ischial wound with malodorous drainage. He reports he noted the wound 2 weeks ago.
Wound opened and deep. He has no sensation from the umbilicus down. He denies fevers or chills at home. In the ER white count 18.3, patient noted to be in DEEP. The ischial wound culture grew MSSA. Admission blood cultures x 2 also positive for
MSSA. Surgery recommends local wound care. Pelvic MRI shows right ischial osteomyelitis. He is currently on vancomycin and Zosyn. Patient reports he is feeling better. No specific complaints.
Past History
Additional Past Medical History:
Hypertension
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
Neurogenic bladder with chronic indwelling Oakley catheter
Bilateral lower extremity lymphedema
History of DVT of right lower extremity, perineal and popliteal veins status post IVC filter placement with subsequent removal
Right femoral shaft fracture status post surgical fixation
Allergy History:
No Known Allergies Allergy (Unverified 11/24/22 13:46)
Medications Reviewed: Yes
Current Antibiotics:
Vancomycin
Zosyn
Social History
Tobacco: Non-Smoker
Alcohol: None
Drug: None
Personal: Single
Living: Alone
Family History
Family History: Not Pertinent
Review of Systems
Review of Systems
General: Negative Fever, Chills or Change in Appetite
HEENT: Negative Sinus Problems or Headache
Cardiovascular: Negative Chest Pain or Dyspnea
Respiratory: Negative Dyspnea or Cough
Gasteroenterology: Negative Nausea, Vomiting or Diarrhea
Endocrine: Negative Weakness
Neurological: Negative Dizziness
All systems: All other systems were reviewed and were negative
Vital Signs
Temp Pulse Resp BP Pulse Ox
98.5 F 73 16 118/70 97
07/17/25 07:01 07/17/25 07:01 07/17/25 07:01 07/17/25 07:01 07/17/25 07:01
Physical Exam
Physical Exam
Constitutional: No Acute Distress and Comfortable
Eyes: No Conjunctival Hemorrhage and Sclera Anicteric
Cardiovascular: Regular Rate and S1/S2
Pulmonary: Clear
Gastrointestinal: Soft, Non Tender, Non Distended and Normal Bowel Sounds
Genito-Urinary: Oakley and Clear Urine
Extremities: Edema (BLE lymphedema)
Wound: Other (Review of wound photos: Right ischium deep wound to bone, yellow fibrin, no drainage)
Neurological: AO x 3
Lab / Diagnostic Study Results
07/17/25 07:11
07/17/25 07:11
Abs Immat Gran (auto) 0.2 10^3/uL (0-0.05) H 07/17/25 07:11
Absolute Neuts (auto) 7.5 10^3/uL (1.4-6.5) H 07/17/25 07:11
Absolute Lymphs (auto) 1.0 10^3/uL (1.2-3.4) L 07/17/25 07:11
Absolute Monos (auto) 1.1 10^3/uL (0.1-0.6) H 07/17/25 07:11
Absolute Basos (auto) 0.1 10^3/uL (0-0.2) 07/17/25 07:11
Immature Gran % 1.9 % (0-0.5) H 07/17/25 07:11
Neutrophils % 72.7 % (42.2-75.2) 07/17/25 07:11
Lymphocytes % 9.2 % (20.5-51.1) L 07/17/25 07:11
Monocytes % 10.3 % (1.7-9.3) H 07/17/25 07:11
Eosinophils % 5.2 % (0-6) 07/17/25 07:11
Basophils % 0.7 % (0-2) 07/17/25 07:11
Lactic Acid 1.1 mmol/L (0.7-2.0) 07/15/25 15:30
Microbiology Results
Micro:
07/15/25 15:34 Blood Culture - Preliminary
Blood/Venous Staphylococcus aureus
Gram Stain - Preliminary
07/15/25 15:34 Blood Culture - Preliminary
Blood/Venous Staphylococcus aureus
Gram Stain - Preliminary
07/15/25 15:30 Wound Culture - Final
Sacral S aureus-Methicillin Sensitive
Gram Stain - Final
07/15/25 22:59 MRSA Screen - Final
Nose No Methicillin Resistant Staphylococcus aureus isolated.
07/16/25 23:04 Blood Culture - Pending
Blood/Venous
07/16/25 Pelvic MRI: Band-shaped soft tissue defect extending from the right posterior skin margin of the buttocks to the posterior margin of the ischium. This is compatible with decubitus ulcer. Enhancing intermediate T1-weighted signal involving
the marrow of the adjacent right posterior ischium, and findings are highly suggestive of osteomyelitis. No evidence for abscess collection.
Assessment / Plan
# MSSA bacteremia
# R ischium osteomyelitis with MSSA
# Leukocytosis
# Paraplegia since 1959's
- Repeat blood cx's x 2 in am
- Ordered TTE
- Check ESR/CRP in am and follow
- DC Vanco//Zosyn
- Start cefazolin 2g IV q8h x 6 weeks from neg blood cx's.
-Trend wbc.
- Local wound care and off load sacrum.
Conditions prior to admission:
Hypertension
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
Neurogenic bladder with chronic indwelling Oakley catheter
Bilateral lower extremity lymphedema
History of DVT of right lower extremity, perineal and popliteal veins status post IVC filter placement with subsequent removal
Right femoral shaft fracture status post surgical fixation
--- NOTE | 2025-07-17 15:06 | PTCARENOTE ---
abd scan showing falk catheter pt arrived to sitting in prostate. per discussion with MD falk catheter balloon deflated and falk advanced. pt with pink tinged urine and occasional clot. MD made aware. wound care complete and bedbath completed.
[2025-07-17 15:35] VITALS: BP 163/86
--- NOTE | 2025-07-17 15:56 | CM ---
CM following re: discharge planning.
Reviewed pt's chart, met with pt.
Per chart review, wound care follwoing.
Pt lives alone in [address], no steps to enter, has caregiver for 7 hours from 8 AM to 3 PM he is able to use a [place] lift from his ceiling to get onto a wheelchair and prepare his own foods and get self back in the chair. Pt has a [place] lift, trapeze,
w/c. Pt reports he has 2 brothers and they live out of state and able to call him with support. Pt reports he is known to [facility] services for RN, PT, OT. Pt reports he has 8 hours of caregiver services that provided by [facility] and now
is a different agency. Pt expressed his strong desire to return back home with [facility] care [facility] services, resumptions of caregiver services and emotional support from his 2 brothers.
Per pt's request, a referral to [facility] made.
D/C plan: per pt's strong request, home with [facility] care VN and resumptions of caregiver services.
CM will follow with discharge plan updates as hospitalization progresses
[2025-07-17] MEDS: ANCEF 10 IV (21:57)
[2025-07-17 23:41] VITALS: BP 152/81
[2025-07-18] MEDS: DAKIN'S SOLUTION 0.125% 1/4 STRENGTH 473 ML TOPICAL ×3 (00:09→19:36)
[2025-07-18] MEDS: DEBROX EAR DROPS 6 DROP OTIC ×2 (00:09→19:36)
[2025-07-18] MEDS: SANTYL OINTMENT 1 APPLIC TOPICAL ×3 (00:10→19:34)
[2025-07-18 05:04] VITALS: BMI 26.5
[2025-07-18] MEDS: ANCEF 10 IV ×3 (05:21→22:22)
[2025-07-18 05:32] VITALS: BMI 26.3
[2025-07-18 07:03] VITALS: BP 151/84
[2025-07-18 07:15] LABS: Hematocrit 34.6 % (39.0-52.0); Hemoglobin 11.4 g/dL (13.0-18.0); Mean Corp Hgb Conc. 32.9 g/dL (33.0-37.0); Mean Corpuscular Volume 79.5 fL (80.0-94.0); Nucleated Red Blood Cells % 0 % (-); Platelet Count 341 10^3/uL (130-400); Red Cell Dist. Width 16.0 % (11.5-14.5)
[2025-07-18 08:02] LABS: ALT (SGPT) 18 U/L (0-50); AST (SGOT) 20 U/L (17-59); Albumin 2.9 g/dl (3.5-5.0); Alkaline Phosphatase 94 U/L (38-126); Blood Urea Nitrogen 39 mg/dl (9-20); Calcium 8.6 mg/dl (8.4-10.2); Carbon Dioxide 25 mmol/L (22-30); Chloride 104 mmol/L (98-107); Estimated Creatinine Clearance 72 ml/min; Glucose 89 mg/dl (70-99); Potassium 4.3 mmol/L (3.5-5.1); Sodium 134 mmol/L (135-145); Total Protein 6.2 g/dl (6.3-8.2); eGFR > 60.00
[2025-07-18 08:34] LABS: C-Reactive Protein 142.40 mg/L (0.0-10.00)
[2025-07-18] MEDS: HEPARIN 5000 UNITS SC ×2 (09:02→19:33)
[2025-07-18] MEDS: DESENEX/MITRAZOL/ZEASORB 1 APPLIC TOPICAL ×2 (09:16→19:36)
[2025-07-18] MEDS: DEBROX EAR DROPS 1 DROP OTIC (09:17)
--- NOTE | 2025-07-18 10:01 | W.PN.ID1 ---
Date of Service
Date of Service: July 18, 2025
Today's Communication
Continue cefazolin.
Assessment / Plan
# MSSA bacteremia x 2 sets
# R ischium osteomyelitis with MSSA
# Leukocytosis - resolved
# Paraplegia since
- 07/17 bcx x 1 neg to date
- Repeat blood cx's x 2 pending
- TTE: no gross vegetation
- CRP 142, ESR 87
- Continue cefazolin 2g IV q8h x 6 weeks from neg blood cx's, through 08/27/25.
[address] PICC when blood cultures remain neg x 72hrs.
Follow weekly CBCP, CMP, ESR, CRP
- Local wound care and off load sacrum.
Conditions prior to admission:
Hypertension
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
Neurogenic bladder with chronic indwelling Oakley catheter
Bilateral lower extremity lymphedema
History of DVT of right lower extremity, perineal and popliteal veins status post IVC filter placement with subsequent removal
Right femoral shaft fracture status post surgical fixation
Chief Complaint
-: Bacteremia and Other (Sacral osteo)
Subjective / Review of Systems
No complaints.
Vital Signs / Physical Exam
Vital Signs
Vital Signs
Temp Pulse Resp BP Pulse Ox
97.7 F 71 18 151/84 96
07/18/25 07:03 07/18/25 07:03 07/18/25 07:03 07/18/25 07:03 07/18/25 07:03
Physical Exam
Constitutional: No Acute Distress and Chronically Ill
Eyes: No Conjunctival Hemorrhage and Sclera Anicteric
Cardiovascular: Regular Rate and S1/S2
Pulmonary: Clear
Gastrointestinal: Soft, Non Tender and Non Distended
Genito-Urinary: Oakley and Clear Urine; Negative CVA Tenderness
Extremities: Edema and Venous Insufficiency
Neurological: AO x 3
Objective Data
Lab Data
Lab Results
07/18/25 07:02
07/18/25 07:03
ESR 87 mm/hour (0-20) H 07/18/25 07:02
Estimated Creat Clear 72 ml/min 07/18/25 07:03
Lactic Acid 1.1 mmol/L (0.7-2.0) 07/15/25 15:30
Total Bilirubin 0.4 mg/dl (0.2-1.3) 07/18/25 07:03
AST 20 U/L (17-59) 07/18/25 07:03
ALT 18 U/L (0-50) 07/18/25 07:03
Alkaline Phosphatase 94 U/L (38-126) 07/18/25 07:03
C-Reactive Protein 142.40 mg/L (0.0-10.00) H 07/18/25 07:03
Most recent labs reviewed.
Micro Results:
07/15/25 15:34 Blood Culture - Preliminary
Blood/Venous S aureus-Methicillin Sensitive
Gram Stain - Preliminary
07/15/25 15:34 Blood Culture - Preliminary
Blood/Venous S aureus-Methicillin Sensitive
Gram Stain - Preliminary
07/18/25 08:38 Blood Culture - Pending
Blood/Venous
07/18/25 07:02 Blood Culture - Pending
Blood/Venous
07/16/25 23:04 Blood Culture - Preliminary
Blood/Venous No Growth in 24 hours- Final report to follow
07/15/25 15:30 Wound Culture - Final
Sacral S aureus-Methicillin Sensitive
Gram Stain - Final
07/15/25 22:59 MRSA Screen - Final
Nose No Methicillin Resistant Staphylococcus aureus isolated.
07/16/25 Pelvic MRI: Band-shaped soft tissue defect extending from the right posterior skin margin of the buttocks to the posterior margin of the ischium. This is compatible with decubitus ulcer. Enhancing intermediate T1-weighted signal involving
the marrow of the adjacent right posterior ischium, and findings are highly suggestive of osteomyelitis. No evidence for abscess collection.
--- NOTE | 2025-07-18 12:42 | W.PN.HOSP.TC ---
Today's Communication/Plan
-
Assessment / Plan
Assessment / Plan
General: No Apparent Distress, Comfortable
HEENT: NormoCephalic, Moist mucous membranes, Atraumatic
Respiratory: Clear and Non Labored Respirations
Cardiac: S1/S2 and Regular Rhythm; No Rub or Gallop
GI: Soft, Non Tender, Non Distended and Normal Bowel Sounds
Musculoskeletal: No Edema, no deformity
Skin: Warm and dry, sacral/ischial decubitus ulcer tracking to bone
: Oakley catheter in place
Neuro: Awake, Alert, paraplegic
Psych: Calm and cooperative
Mr. Gaytan is an 80-year-old male with a medical history of paraplegia (status post T11 fracture in the 1960s after a fall), chronic indwelling Oakley catheter, RLL DVT (11/24/2022, IVC filter placed and then removed 01/18/2023), chronic bilateral
lower extremity lymphedema, and macrocytic anemia who presents from home where he lives alone with a caregiver for 7 hours a day. He presented due to concern for worsening sacral wound which he is unable to feel due to his paraplegia but reports
has become malodorous.
Sepsis secondary to infected sacral ulcer:
- Now with bacteremia, blood cultures growing Staph aureus, blood cultures and sacral wound cultures growing MSSA
- MRI of pelvis shows sacral osteo with no fluid collections
- No need for debridement, general surgery signed off
- Clinically improving, leukocytosis resolving, repeat blood cultures pending
- Planning to continue antibiotics with Ancef 2 g IV every 8 hours for 6 weeks from the time of negative blood cultures, appreciate ID guidance
- Echocardiogram pending
- Continue local wound care
- PT/OT
Hyponatremia:
- Likely hypovolemic
- Initial serum sodium 121, appears somewhat chronic
- Gradually improving, serum sodium 134 today
- Nephrology following, recommend continuing fluids for now and monitor
DEEP:
- Mild with that initial creatinine of 1.4, baseline appears to be around 0.9
- Improved today to creatinine of 1.0
- Nephrology following
DVT prophylaxis: Subcu heparin
CODE STATUS: Full code
Total time spent on today's encounter was 44 minutes
Anticipated Discharge: > 48 hours
Subjective/Interval History
-
Date of Service: July 18, 2025
Patient was seen and examined at bedside this morning. Feeling well. Now treating with Ancef with plan for 6 weeks of treatment from the time of negative blood cultures. Planning echocardiogram which would likely not happen before Sunday.
Objective Data
-
Labs:
Laboratory Results
07/18/25 07/18/25
07:02 07:03
WBC 10.6
Hgb 11.4 L
Hct 34.6 L
Plt Count 341
Sodium 134 L
Potassium 4.3
Chloride 104
Carbon Dioxide 25
BUN 39 H
Creatinine 1.0
Glucose 89
Calcium 8.6
Total Bilirubin 0.4
AST 20
ALT 18
Alkaline Phosphatase 94
Vital Signs:
Vital Signs
Temp Pulse Resp BP Pulse Ox
97.7 F 71 18 151/84 96
07/18/25 07:03 07/18/25 07:03 07/18/25 07:03 07/18/25 07:03 07/18/25 08:00
I&O
07/17/25 07/18/25 07/19/25
06:59 06:59 06:59
Intake Total 1530 / 1530 2099 / 2100
Output Total 1500 / 1500 1950 / 1950
Balance 30 / 30 150 / 150
Review of Systems
-
History Source: Patient
All other systems: Reviewed and negative
Physical Exam
-
General: No Apparent Distress
--- NOTE | 2025-07-18 14:55 | W.PN.NEPH.PH ---
Today's Communication / Plan
-
Follow-up BMP
Assessment/Plan
-
IMP:
DEEP
Hyponatremia likely hypovolemic
Sepsis secondary to infected sacral wound unstageable
History of paraplegia status post fall resulting in T11 fracture 1960s
Left ankle wound POA due to paraplegia
Chronic lymphedema bilateral lower legs
Bilateral cerumen impaction patient unable to hear
Chronic indwelling Falk catheter
HTn
Anemia microcytic
Right femoral shaft fracture status post surgical fixation 11/24/2022
Right lower extremity DVT peroneal/popliteal 11/24/2022 with IVC filter placement then removal(01/18/2023)
History of COVID 11/24/2022
Plan:
follow BMP
follow po intake
No IV fluids
-
-
Date of Service: July 18, 2025
CC / HPI / ROS
-
Chief Complaint:
Hyponatremia, DEEP
History of Present Illness:
sodium better at 134
cr better at 1.
BP stable, non oliguric with chronic falk
Review of Systems:
no complaints
no pain
still hard of hearing
Labs
-
Labs:
WBC 10.6 10^3/uL (4.8-10.8) 07/18/25 07:02
RBC 4.35 10^6/uL (4.70-6.10) L 07/18/25 07:02
Hgb 11.4 g/dL (13.0-18.0) L 07/18/25 07:02
Hct 34.6 % (39.0-52.0) L 07/18/25 07:02
Plt Count 341 10^3/uL (130-400) 07/18/25 07:02
Sodium 134 mmol/L (135-145) L 07/18/25 07:03
Potassium 4.3 mmol/L (3.5-5.1) 07/18/25 07:03
Chloride 104 mmol/L (98-107) 07/18/25 07:03
Carbon Dioxide 25 mmol/L (22-30) 07/18/25 07:03
BUN 39 mg/dl (9-20) H 07/18/25 07:03
Creatinine 1.0 mg/dL (0.7-1.3) 07/18/25 07:03
eGFR > 60.00 07/18/25 07:03
Glucose 89 mg/dl (70-99) 07/18/25 07:03
Calcium 8.6 mg/dl (8.4-10.2) 07/18/25 07:03
Albumin 2.9 g/dl (3.5-5.0) L 07/18/25 07:03
Physical Exam
-
Vital Signs:
Vital Signs
Temp Pulse Resp BP Pulse Ox
97.7 F 71 18 151/84 96
07/18/25 07:03 07/18/25 07:03 07/18/25 07:03 07/18/25 07:03 07/18/25 08:00
Cardiovascular:: Regular rate and rhythm
Respiratory:: Bilateral: Coarse
Lung Excursion:: Normal
Abdomen:: Nontender and Soft
Bowel Sounds:: Normal
Extremity Edema:: None: Bilateral:
[2025-07-18 15:20] VITALS: BP 159/82
[2025-07-18 22:32] VITALS: BP 141/53
[2025-07-19] MEDS: ANCEF 10 IV ×3 (05:16→22:38)
[2025-07-19 05:42] VITALS: BMI 26.6
[2025-07-19 07:01] LABS: Hematocrit 32.6 % (39.0-52.0); Hemoglobin 10.7 g/dL (13.0-18.0); Mean Corp Hgb Conc. 32.8 g/dL (33.0-37.0); Mean Corpuscular Volume 81.5 fL (80.0-94.0); Nucleated Red Blood Cells % 0 % (-); Platelet Count 333 10^3/uL (130-400); Red Cell Dist. Width 16.0 % (11.5-14.5)
[2025-07-19 07:28] VITALS: BP 137/70
[2025-07-19 07:40] LABS: ALT (SGPT) 10 U/L (0-50); AST (SGOT) 19 U/L (17-59); Albumin 2.5 g/dl (3.5-5.0); Alkaline Phosphatase 84 U/L (38-126); Blood Urea Nitrogen 34 mg/dl (9-20); Calcium 8.5 mg/dl (8.4-10.2); Carbon Dioxide 22 mmol/L (22-30); Chloride 104 mmol/L (98-107); Estimated Creatinine Clearance 80 ml/min; Glucose 84 mg/dl (70-99); Potassium 4.1 mmol/L (3.5-5.1); Sodium 132 mmol/L (135-145); Total Protein 5.5 g/dl (6.3-8.2); eGFR > 60.00
[2025-07-19] MEDS: SANTYL OINTMENT 1 APPLIC TOPICAL ×2 (08:14→20:19)
[2025-07-19] MEDS: HEPARIN 5000 UNITS SC ×2 (08:15→20:18)
[2025-07-19] MEDS: DAKIN'S SOLUTION 0.125% 1/4 STRENGTH 473 ML TOPICAL ×2 (08:16→20:21)
[2025-07-19] MEDS: DEBROX EAR DROPS 1 DROP OTIC (08:16)
[2025-07-19] MEDS: DESENEX/MITRAZOL/ZEASORB 1 APPLIC TOPICAL ×2 (08:16→20:20)
--- NOTE | 2025-07-19 12:31 | W.PN.HOSP.TC ---
Today's Communication/Plan
-
Assessment / Plan
Assessment / Plan
General: No Apparent Distress, Comfortable
HEENT: NormoCephalic, Moist mucous membranes, Atraumatic
Respiratory: Clear and Non Labored Respirations
Cardiac: S1/S2 and Regular Rhythm; No Rub or Gallop
GI: Soft, Non Tender, Non Distended and Normal Bowel Sounds
Musculoskeletal: No Edema, no deformity
Skin: Warm and dry, sacral/ischial decubitus ulcer tracking to bone
: Oakley catheter in place
Neuro: Awake, Alert, paraplegic
Psych: Calm and cooperative
Mr. Gaytan is an 80-year-old male with a medical history of paraplegia (status post T11 fracture in the 1960s after a fall), chronic indwelling Oakley catheter, RLL DVT (11/24/2022, IVC filter placed and then removed 01/18/2023), chronic bilateral
lower extremity lymphedema, and macrocytic anemia who presents from home where he lives alone with a caregiver for 7 hours a day. He presented due to concern for worsening sacral wound which he is unable to feel due to his paraplegia but reports
has become malodorous.
Sepsis secondary to infected sacral ulcer:
- Now with bacteremia, blood cultures growing Staph aureus, blood cultures and sacral wound cultures growing MSSA
- MRI of pelvis shows sacral osteo with no fluid collections
- No need for debridement, general surgery signed off
- Clinically improving, leukocytosis resolving, final sterile blood cultures pending
- Planning to continue antibiotics with Ancef 2 g IV every 8 hours for 6 weeks from the time of negative blood cultures, appreciate ID guidance
- PICC line pending sterile cultures, will likely need SNF placement for wound care and long-term antibiotics
- Echocardiogram shows no evidence of vegetations
- Continue local wound care
- PT/OT
Hyponatremia:
- Likely hypovolemic
- Initial serum sodium 121, appears somewhat chronic
- Gradually improving, serum sodium 132 today
- Nephrology following
DEEP:
- Mild with that initial creatinine of 1.4, baseline appears to be around 0.9
- Now resolved
- Nephrology following
DVT prophylaxis: Subcu heparin
CODE STATUS: Full code
Total time spent on today's encounter was 42 minutes
Anticipated Discharge: 24 - 48 hours
Subjective/Interval History
-
Date of Service: July 19, 2025
Patient was seen and examined at bedside this morning. Feeling well. Continuing IV antibiotics for MSSA bacteremia from his wounds. Awaiting final sterile cultures.
Objective Data
-
Labs:
Laboratory Results
07/19/25
06:32
WBC 10.1
Hgb 10.7 L
Hct 32.6 L
Plt Count 333
Sodium 132 L
Potassium 4.1
Chloride 104
Carbon Dioxide 22
BUN 34 H
Creatinine 0.9
Glucose 84
Calcium 8.5
Total Bilirubin 0.3
AST 19
ALT 10
Alkaline Phosphatase 84
Vital Signs:
Vital Signs
Temp Pulse Resp BP Pulse Ox
97.9 F 75 16 137/70 96
07/19/25 07:28 07/19/25 07:28 07/19/25 07:28 07/19/25 07:28 07/19/25 07:28
I&O
07/18/25 07/19/25 07/20/25
06:59 06:59 06:59
Intake Total 2100 / 2100 1200 / 1200 480 / 480
Output Total 1950 / 1950 2125 / 2125 400 / 400
Balance 150 / 150 -925 / -925 80 / 80
Review of Systems
-
History Source: Patient
All other systems: Reviewed and negative
Physical Exam
-
General: No Apparent Distress
--- NOTE | 2025-07-19 12:57 | W.PN.NEPH.PH ---
Today's Communication / Plan
-
follow BMP
Assessment/Plan
-
IMP:
DEEP
Hyponatremia likely hypovolemic
Sepsis secondary to infected sacral wound unstageable
History of paraplegia status post fall resulting in T11 fracture 1960s
Left ankle wound POA due to paraplegia
Chronic lymphedema bilateral lower legs
Bilateral cerumen impaction patient unable to hear
Chronic indwelling Falk catheter
HTn
Anemia microcytic
Right femoral shaft fracture status post surgical fixation 11/24/2022
Right lower extremity DVT peroneal/popliteal 11/24/2022 with IVC filter placement then removal(01/18/2023)
History of COVID 11/24/2022
Plan:
follow BMP
follow po intake
No IV fluids today
-
-
Date of Service: July 19, 2025
CC / HPI / ROS
-
Chief Complaint:
Hyponatremia, DEEP
History of Present Illness:
sodium stable at 132
cr better at 0.9
BP stable, non oliguric with chronic aflk
abx for decub ulcer
Review of Systems:
no complaints
no pain
hard of hearing
Labs
-
Labs:
WBC 10.1 10^3/uL (4.8-10.8) 07/19/25 06:32
RBC 4.00 10^6/uL (4.70-6.10) L 07/19/25 06:32
Hgb 10.7 g/dL (13.0-18.0) L 07/19/25 06:32
Hct 32.6 % (39.0-52.0) L 07/19/25 06:32
Plt Count 333 10^3/uL (130-400) 07/19/25 06:32
Sodium 132 mmol/L (135-145) L 07/19/25 06:32
Potassium 4.1 mmol/L (3.5-5.1) 07/19/25 06:32
Chloride 104 mmol/L (98-107) 07/19/25 06:32
Carbon Dioxide 22 mmol/L (22-30) 07/19/25 06:32
BUN 34 mg/dl (9-20) H 07/19/25 06:32
Creatinine 0.9 mg/dL (0.7-1.3) 07/19/25 06:32
eGFR > 60.00 07/19/25 06:32
Glucose 84 mg/dl (70-99) 07/19/25 06:32
Calcium 8.5 mg/dl (8.4-10.2) 07/19/25 06:32
Albumin 2.5 g/dl (3.5-5.0) L 07/19/25 06:32
Physical Exam
-
Vital Signs:
Vital Signs
Temp Pulse Resp BP Pulse Ox
97.9 F 75 16 137/70 96
07/19/25 07:28 07/19/25 07:28 07/19/25 07:28 07/19/25 07:28 07/19/25 07:28
Cardiovascular:: Regular rate and rhythm
Respiratory:: Bilateral: CTA
Lung Excursion:: Normal
Abdomen:: Nontender and Soft
Bowel Sounds:: Normal
Extremity Edema:: None: Bilateral:
--- NOTE | 2025-07-19 14:38 | W.PN.ID1 ---
Date of Service
Date of Service: July 19, 2025
Today's Communication
Continue cefazolin 2g IV q8h x 6 weeks
Assessment / Plan
# MSSA bacteremia x 2 sets
# R ischium osteomyelitis with MSSA
# Leukocytosis - resolved
# Paraplegia since
- 07/17 bcx x 1 neg to date
- Repeat blood cx's x 2 pending
- TTE: no gross vegetation
- CRP 142, ESR 87
- Continue cefazolin 2g IV q8h x 6 weeks from neg blood cx's, through 08/27/25.
Place PICC when blood cultures remain neg x 72hrs.
Follow weekly CBCP, CMP, ESR, CRP
- Local wound care and off load sacrum.
- SNF placment.
Conditions prior to admission:
Hypertension
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
Neurogenic bladder with chronic indwelling Oakley catheter
Bilateral lower extremity lymphedema
History of DVT of right lower extremity, perineal and popliteal veins status post IVC filter placement with subsequent removal
Right femoral shaft fracture status post surgical fixation
Chief Complaint
-: Bacteremia and Other (Sacral osteo)
Subjective / Review of Systems
No complaints.
Vital Signs / Physical Exam
Vital Signs
Vital Signs
Temp Pulse Resp BP Pulse Ox
97.9 F 75 16 137/70 96
07/19/25 07:28 07/19/25 07:28 07/19/25 07:28 07/19/25 07:28 07/19/25 07:28
Physical Exam
Constitutional: No Acute Distress and Chronically Ill
Eyes: No Conjunctival Hemorrhage and Sclera Anicteric
Cardiovascular: Regular Rate and S1/S2
Pulmonary: Clear
Gastrointestinal: Soft, Non Tender and Non Distended
Genito-Urinary: Oakley and Clear Urine; Negative CVA Tenderness
Extremities: Edema and Venous Insufficiency
Neurological: AO x 3
Objective Data
Lab Data
Lab Results
07/19/25 06:32
07/19/25 06:32
ESR 87 mm/hour (0-20) H 07/18/25 07:02
Estimated Creat Clear 80 ml/min 07/19/25 06:32
Lactic Acid 1.1 mmol/L (0.7-2.0) 07/15/25 15:30
Total Bilirubin 0.3 mg/dl (0.2-1.3) 07/19/25 06:32
AST 19 U/L (17-59) 07/19/25 06:32
ALT 10 U/L (0-50) 07/19/25 06:32
Alkaline Phosphatase 84 U/L (38-126) 07/19/25 06:32
C-Reactive Protein 142.40 mg/L (0.0-10.00) H 07/18/25 07:03
Most recent labs reviewed.
Micro Results:
07/18/25 08:38 Blood Culture - Preliminary
Blood/Venous No Growth in 24 hours- Final report to follow
07/18/25 07:02 Blood Culture - Preliminary
Blood/Venous No Growth in 24 hours- Final report to follow
07/16/25 23:04 Blood Culture - Preliminary
Blood/Venous No Growth in 48 hours- Final report to follow
07/15/25 15:34 Blood Culture - Preliminary
Blood/Venous S aureus-Methicillin Sensitive
Gram Stain - Preliminary
07/15/25 15:34 Blood Culture - Preliminary
Blood/Venous S aureus-Methicillin Sensitive
Gram Stain - Preliminary
07/15/25 15:30 Wound Culture - Final
Sacral S aureus-Methicillin Sensitive
Gram Stain - Final
07/15/25 22:59 MRSA Screen - Final
Nose No Methicillin Resistant Staphylococcus aureus isolated.
07/16/25 Pelvic MRI: Band-shaped soft tissue defect extending from the right posterior skin margin of the buttocks to the posterior margin of the ischium. This is compatible with decubitus ulcer. Enhancing intermediate T1-weighted signal involving
the marrow of the adjacent right posterior ischium, and findings are highly suggestive of osteomyelitis. No evidence for abscess collection.
Care Review
Plan reviewed with: Physician (Dr. Lazcano)
[2025-07-19 16:12] VITALS: BP 155/82
[2025-07-19] MEDS: DEBROX EAR DROPS 3 DROP OTIC (20:17)
[2025-07-19 23:33] VITALS: BP 144/78
[2025-07-20 06:00] VITALS: BMI 26.7
[2025-07-20] MEDS: ANCEF 10 IV ×3 (06:16→21:10)
[2025-07-20 07:15] VITALS: BP 146/74
[2025-07-20 07:58] LABS: Blood Urea Nitrogen 31 mg/dl (9-20); Calcium 8.7 mg/dl (8.4-10.2); Carbon Dioxide 24 mmol/L (22-30); Chloride 103 mmol/L (98-107); Estimated Creatinine Clearance 80 ml/min; Glucose 83 mg/dl (70-99); Potassium 4.1 mmol/L (3.5-5.1); Sodium 133 mmol/L (135-145); eGFR > 60.00
[2025-07-20] MEDS: DEBROX EAR DROPS 3 DROP OTIC ×2 (08:36→20:49)
[2025-07-20] MEDS: HEPARIN 5000 UNITS SC ×2 (08:36→20:49)
[2025-07-20] MEDS: SANTYL OINTMENT 1 APPLIC TOPICAL ×2 (08:36→20:50)
[2025-07-20] MEDS: DESENEX/MITRAZOL/ZEASORB 1 APPLIC TOPICAL ×2 (08:37→20:51)
[2025-07-20] MEDS: DAKIN'S SOLUTION 0.125% 1/4 STRENGTH 473 ML TOPICAL ×2 (08:38→20:51)
--- NOTE | 2025-07-20 09:22 | W.PN.NEPH.PH ---
Today's Communication / Plan
-
Signed off
Assessment/Plan
-
IMP:
DEEP
Hyponatremia likely hypovolemic
Sepsis secondary to infected sacral wound unstageable
History of paraplegia status post fall resulting in T11 fracture 1960s
Left ankle wound POA due to paraplegia
Chronic lymphedema bilateral lower legs
Bilateral cerumen impaction patient unable to hear
Chronic indwelling Falk catheter
HTn
Anemia microcytic
Right femoral shaft fracture status post surgical fixation 11/24/2022
Right lower extremity DVT peroneal/popliteal 11/24/2022 with IVC filter placement then removal(01/18/2023)
History of COVID 11/24/2022
Plan:
follow BMP
follow po intake
No IV fluids today
Sodium 133
I will sign off please call if needed
-
-
Date of Service: July 20, 2025
CC / HPI / ROS
-
Chief Complaint:
Hyponatremia, DEEP
History of Present Illness:
sodium stable at 132
cr better at 0.9
BP stable, non oliguric with chronic falk
abx for decub ulcer
Review of Systems:
no complaints
no pain
hard of hearing
Labs
-
Labs:
WBC 10.1 10^3/uL (4.8-10.8) 07/19/25 06:32
RBC 4.00 10^6/uL (4.70-6.10) L 07/19/25 06:32
Hgb 10.7 g/dL (13.0-18.0) L 07/19/25 06:32
Hct 32.6 % (39.0-52.0) L 07/19/25 06:32
Plt Count 333 10^3/uL (130-400) 07/19/25 06:32
Sodium 133 mmol/L (135-145) L 07/20/25 06:40
Potassium 4.1 mmol/L (3.5-5.1) 07/20/25 06:40
Chloride 103 mmol/L (98-107) 07/20/25 06:40
Carbon Dioxide 24 mmol/L (22-30) 07/20/25 06:40
BUN 31 mg/dl (9-20) H 07/20/25 06:40
Creatinine 0.9 mg/dL (0.7-1.3) 07/20/25 06:40
eGFR > 60.00 07/20/25 06:40
Glucose 83 mg/dl (70-99) 07/20/25 06:40
Calcium 8.7 mg/dl (8.4-10.2) 07/20/25 06:40
Albumin 2.5 g/dl (3.5-5.0) L 07/19/25 06:32
Physical Exam
-
Vital Signs:
Vital Signs
Temp Pulse Resp BP Pulse Ox
97.9 F 78 16 146/74 94
07/20/25 07:15 07/20/25 07:15 07/20/25 07:15 07/20/25 07:15 07/20/25 07:15
Cardiovascular:: Regular rate and rhythm
Respiratory:: Bilateral: CTA
Lung Excursion:: Normal
Abdomen:: Nontender and Soft
Bowel Sounds:: Normal
Extremity Edema:: None: Bilateral:
--- NOTE | 2025-07-20 09:58 | CM ---
CM following re: discharge planning.
Reviewed pt's chart, met with pt.
PT and OT continue recommending SNF level of care. Per ID MD pt will need Cefazolin 2g IF Q8.
Today pt expressed less reluctant feelings regarding SNF level of care and with ID MD support pt expressed his agreement to go to a SNF. A list of SNFs provided. Pt preferred following SNFs: [facility] SNF, [facility] SNF, [facility] SNF or
[facility] SNF. A referral to above SNFs made. Awaiting for determination.
D/C plan: Preferred and accepted SNF. Will need an auth.
CM will follow to assist pt with discharge to a preferred SNF.
--- NOTE | 2025-07-20 11:21 | W.PN.ID1 ---
Date of Service
Date of Service: July 20, 2025
Today's Communication
6 weeks of cefazolin.
Assessment / Plan
# MSSA bacteremia x 2 sets
# R ischium osteomyelitis with MSSA
# Leukocytosis - resolved
# Paraplegia since
- 07/17 bcx x 1 neg to date
- Repeat blood cx's x 2 neg to date.
- TTE: no gross vegetation
- CRP 142, ESR 87
- Continue cefazolin 2g IV q8h x 6 weeks through 08/27/25.
-Ordered PICC
- Follow weekly CBCP, CMP, ESR, CRP
-Infusion sheet submitted to case therapist.
- Local wound care and off load sacrum.
- SNF placement.
Conditions prior to admission:
Hypertension
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
Neurogenic bladder with chronic indwelling Oakley catheter
Bilateral lower extremity lymphedema
History of DVT of right lower extremity, perineal and popliteal veins status post IVC filter placement with subsequent removal
Right femoral shaft fracture status post surgical fixation
Chief Complaint
-: Bacteremia and Other (Sacral osteo)
Subjective / Review of Systems
No new complaints.
Vital Signs / Physical Exam
Vital Signs
Vital Signs
Temp Pulse Resp BP Pulse Ox
97.9 F 78 16 146/74 94
07/20/25 07:15 07/20/25 07:15 07/20/25 07:15 07/20/25 07:15 07/20/25 07:15
Physical Exam
Constitutional: No Acute Distress and Chronically Ill
Eyes: No Conjunctival Hemorrhage and Sclera Anicteric
Cardiovascular: Regular Rate and S1/S2
Pulmonary: Clear
Gastrointestinal: Soft, Non Tender and Non Distended
Genito-Urinary: Oakley and Clear Urine; Negative CVA Tenderness
Extremities: Edema and Venous Insufficiency
Neurological: AO x 3
Objective Data
Lab Data
Lab Results
07/19/25 06:32
07/20/25 06:40
ESR 87 mm/hour (0-20) H 07/18/25 07:02
Estimated Creat Clear 80 ml/min 07/20/25 06:40
Lactic Acid 1.1 mmol/L (0.7-2.0) 07/15/25 15:30
Total Bilirubin 0.3 mg/dl (0.2-1.3) 07/19/25 06:32
AST 19 U/L (17-59) 07/19/25 06:32
ALT 10 U/L (0-50) 07/19/25 06:32
Alkaline Phosphatase 84 U/L (38-126) 07/19/25 06:32
C-Reactive Protein 142.40 mg/L (0.0-10.00) H 07/18/25 07:03
Most recent labs reviewed.
Micro Results:
07/18/25 08:38 Blood Culture - Preliminary
Blood/Venous No Growth in 48 hours- Final report to follow
07/18/25 07:02 Blood Culture - Preliminary
Blood/Venous No Growth in 48 hours- Final report to follow
07/16/25 23:04 Blood Culture - Preliminary
Blood/Venous No Growth in 72 hours- Final report to follow
07/15/25 15:34 Blood Culture - Preliminary
Blood/Venous S aureus-Methicillin Sensitive
Gram Stain - Preliminary
07/15/25 15:34 Blood Culture - Preliminary
Blood/Venous S aureus-Methicillin Sensitive
Gram Stain - Preliminary
07/15/25 15:30 Wound Culture - Final
Sacral S aureus-Methicillin Sensitive
Gram Stain - Final
07/15/25 22:59 MRSA Screen - Final
Nose No Methicillin Resistant Staphylococcus aureus isolated.
07/16/25 Pelvic MRI: Band-shaped soft tissue defect extending from the right posterior skin margin of the buttocks to the posterior margin of the ischium. This is compatible with decubitus ulcer. Enhancing intermediate T1-weighted signal involving
the marrow of the adjacent right posterior ischium, and findings are highly suggestive of osteomyelitis. No evidence for abscess collection.
Care Review
Plan reviewed with: Physician (Dr. Penny Cunningham) and Other (case therapist.)
[2025-07-20 11:32] VITALS: BP 118/54
--- NOTE | 2025-07-20 13:31 | W.PN.HOSP.TC ---
Today's Communication/Plan
-
discharge planning for snf rehab
Assessment / Plan
Assessment / Plan
Sepsis secondary to infected sacral ulcer:
MSSA bacteremia
- Now with bacteremia, blood cultures growing Staph aureus, blood cultures and sacral wound cultures growing MSSA
- MRI of pelvis shows sacral osteo with no fluid collections
- No need for debridement, general surgery signed off
- Repeat blood culture has been negative
- ID recommended 6 weeks of IV Ancef therapy. PICC line has been ordered.
- Echocardiogram shows no evidence of vegetations
- Continue local wound care
Hyponatremia:
- Likely hypovolemic
- Initial serum sodium 121, appears somewhat chronic
- improved to 133.
DEEP - resolved
- Nephrology help appreciated
DVT prophylaxis: Subcu heparin
CODE STATUS: Full code
Anticipated Discharge: Within 24 hours
Subjective/Interval History
-
Date of Service: July 20, 2025
Resting comfortably in bed
Denies of having any issues
Objective Data
-
Labs:
Laboratory Results
07/20/25
06:40
Sodium 133 L
Potassium 4.1
Chloride 103
Carbon Dioxide 24
BUN 31 H
Creatinine 0.9
Glucose 83
Calcium 8.7
Vital Signs:
Vital Signs
Temp Pulse Resp BP Pulse Ox
97.9 F 75 16 118/54 94
07/20/25 11:32 07/20/25 11:32 07/20/25 11:32 07/20/25 11:32 07/20/25 11:32
I&O
07/19/25 07/20/25 07/21/25
06:59 06:59 06:59
Intake Total 1200 / 1200 480 / 480 480 / 480
Output Total 5 / 2125 1775 / 1775 1150 / 1150
Balance -925 / -925 -1295 / -1295 -670 / -670
Review of Systems
-
Respiratory: Reports No Symptoms
Cardiac: Reports No Symptoms
Abdomen/GI: Reports No Symptoms
Physical Exam
-
General: Comfortable
HEENT: Negative Oxygen
GI: Soft, Nontender, Nondistended and Normal Bowel Sounds
Neuro: Awake, Alert and Other (Paraplegic)
[2025-07-20] MEDS: DULCOLAX 10 MG RECTAL (16:42)
[2025-07-20 23:21] VITALS: BP 133/65
[2025-07-21 06:00] VITALS: BMI 26.2
[2025-07-21] MEDS: ANCEF 10 IV ×3 (06:10→22:53)
[2025-07-21 07:01] VITALS: BP 134/63
[2025-07-21] MEDS: SANTYL OINTMENT 1 APPLIC TOPICAL ×2 (07:37→22:52)
[2025-07-21] MEDS: HEPARIN 5000 UNITS SC ×2 (07:37→22:51)
[2025-07-21] MEDS: DAKIN'S SOLUTION 0.125% 1/4 STRENGTH 473 ML TOPICAL ×2 (07:39→22:50)
[2025-07-21] MEDS: DESENEX/MITRAZOL/ZEASORB 1 APPLIC TOPICAL ×2 (07:39→22:51)
[2025-07-21] MEDS: DEBROX EAR DROPS 1 DROP OTIC ×2 (07:40→22:49)
--- NOTE | 2025-07-21 09:45 | W.PN.ID1 ---
Date of Service
Date of Service: July 21, 2025
Today's Communication
Continue cefazolin
Assessment / Plan
# MSSA bacteremia x 2 sets
# R ischium osteomyelitis with MSSA
# Leukocytosis - resolved
# Paraplegia since
- 07/17 bcx x 1 neg to date
- Repeat blood cx's x 2 neg to date.
- TTE: no gross vegetation
- CRP 142, ESR 87
- Continue cefazolin 2g IV q8h x 6 weeks through 08/27/25.
- PICC in place
- Follow weekly CBCP, CMP, ESR, CRP
-Infusion sheet submitted to correctional case manager.
- Local wound care and off load sacrum.
- SNF placement.
Conditions prior to admission:
Hypertension
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
Neurogenic bladder with chronic indwelling Oakley catheter
Bilateral lower extremity lymphedema
History of DVT of right lower extremity, perineal and popliteal veins status post IVC filter placement with subsequent removal
Right femoral shaft fracture status post surgical fixation
Chief Complaint
-: Bacteremia and Other (Sacral osteo)
Subjective / Review of Systems
No complaints.
Vital Signs / Physical Exam
Vital Signs
Vital Signs
Temp Pulse Resp BP Pulse Ox
98.7 F 78 16 134/63 94
07/21/25 07:01 07/21/25 07:01 07/21/25 07:01 07/21/25 07:01 07/21/25 07:01
Physical Exam
Constitutional: No Acute Distress and Comfortable
Eyes: No Conjunctival Hemorrhage and Sclera Anicteric
Cardiovascular: Regular Rate and S1/S2
Pulmonary: Clear
Gastrointestinal: Soft, Non Tender and Non Distended
Genito-Urinary: Oakley and Clear Urine; Negative CVA Tenderness
Extremities: Edema and Venous Insufficiency
Neurological: AO x 3
Lines: PICC (RUE no erythema)
Objective Data
Lab Data
Lab Results
07/19/25 06:32
07/20/25 06:40
ESR 87 mm/hour (0-20) H 07/18/25 07:02
Estimated Creat Clear 80 ml/min 07/20/25 06:40
Lactic Acid 1.1 mmol/L (0.7-2.0) 07/15/25 15:30
Total Bilirubin 0.3 mg/dl (0.2-1.3) 07/19/25 06:32
AST 19 U/L (17-59) 07/19/25 06:32
ALT 10 U/L (0-50) 07/19/25 06:32
Alkaline Phosphatase 84 U/L (38-126) 07/19/25 06:32
C-Reactive Protein 142.40 mg/L (0.0-10.00) H 07/18/25 07:03
Most recent labs reviewed.
Micro Results:
07/18/25 08:38 Blood Culture - Preliminary
Blood/Venous No Growth in 72 hours- Final report to follow
07/18/25 07:02 Blood Culture - Preliminary
Blood/Venous No Growth in 72 hours- Final report to follow
07/16/25 23:04 Blood Culture - Preliminary
Blood/Venous No Growth in 4 days- Final report to follow
07/15/25 15:34 Blood Culture - Preliminary
Blood/Venous S aureus-Methicillin Sensitive
Gram Stain - Preliminary
07/15/25 15:34 Blood Culture - Preliminary
Blood/Venous S aureus-Methicillin Sensitive
Gram Stain - Preliminary
07/15/25 15:30 Wound Culture - Final
Sacral S aureus-Methicillin Sensitive
Gram Stain - Final
07/15/25 22:59 MRSA Screen - Final
Nose No Methicillin Resistant Staphylococcus aureus isolated.
07/16/25 Pelvic MRI: Band-shaped soft tissue defect extending from the right posterior skin margin of the buttocks to the posterior margin of the ischium. This is compatible with decubitus ulcer. Enhancing intermediate T1-weighted signal involving
the marrow of the adjacent right posterior ischium, and findings are highly suggestive of osteomyelitis. No evidence for abscess collection.
[2025-07-21 12:28] LABS: COVID-19 Antigen Negative (Negative)
--- NOTE | 2025-07-21 12:50 | PTOTSP ---
pt currently requires total assist with ADLs, assistance with transfers, uses a w/c for mobility. pt reports caregiver assist getting OOB, pt able to put self back to bed with ceiling lift. pt able to maneuver w/c without assistance. equipment not
available at hospital, unable to assess pt's mobility. pt demonstrates decreased UE ROM, though pt reports this is his baseline. no acute OT needs identified, will sign off.
--- NOTE | 2025-07-21 13:51 | W.PN.HOSP.TC ---
Today's Communication/Plan
-
ongoing discharge planning for snf rehab
Assessment / Plan
Assessment / Plan
Sepsis secondary to infected sacral ulcer:
MSSA bacteremia
- Now with bacteremia, blood cultures growing Staph aureus, blood cultures and sacral wound cultures growing MSSA
- MRI of pelvis shows sacral osteo with no fluid collections
- No need for debridement, general surgery signed off
- Repeat blood culture has been negative
- ID recommended 6 weeks of IV Ancef therapy. PICC line has been ordered.
- Echocardiogram shows no evidence of vegetations
- Continue local wound care
Hyponatremia:
- Likely hypovolemic
- Initial serum sodium 121, appears somewhat chronic
- improved to 133.
DEEP - resolved
- Nephrology help appreciated
Sore throat
- add cepacol lozenge
- check covid
DVT prophylaxis: Subcu heparin
CODE STATUS: Full code
Anticipated Discharge: Today
Subjective/Interval History
-
Date of Service: July 21, 2025
no issues overnight
Objective Data
-
Vital Signs:
Vital Signs
Temp Pulse Resp BP Pulse Ox
98.7 F 78 16 134/63 94
07/21/25 07:01 07/21/25 07:01 07/21/25 07:01 07/21/25 07:01 07/21/25 07:01
I&O
07/20/25 07/21/25 07/22/25
06:59 06:59 06:59
Intake Total 480 / 480 1440 / 1440
Output Total 1775 / 1775 2375 / 2375
Balance -1295 / -1295 -935 / -935
Review of Systems
-
Respiratory: Reports No Symptoms
Cardiac: Reports No Symptoms
Abdomen/GI: Reports No Symptoms
Physical Exam
-
General: Comfortable
HEENT: Negative Oxygen
GI: Soft, Nontender, Nondistended and Normal Bowel Sounds
Neuro: Awake, Alert and Other (Paraplegic)
--- NOTE | 2025-07-21 14:43 | CM ---
Addendum entered by Karen Freitas 07/21/25 16:19:
[facility] bed
Pt in agreement if no other accepting SNF
Would like to further discuss tomorrow after outcome of SNF referrals
[facility] [phone]
Dr Yao Watts [phone]
Original Note:
CM reviewed pt with attending- ready for dc
Pt with wound care needs and IV Ancef 2g Q8H through 08/27/25
Requested PT/OT evals for auth
No accepting SNF at this time
[facility] may consider upon review of wound notes/needs
Bedside meeting with pt
PAC provided, wide net of add'l referral sent and pending
Pt will require M/C [employer] [facility] auth
Of note, will need air mattress at SNF
Discharge Disposition- SNF with air mattress and IV abx
[2025-07-21 15:03] VITALS: BP 131/58
[2025-07-21 23:35] VITALS: BP 121/77
[2025-07-22 05:14] VITALS: BMI 26.2
[2025-07-22] MEDS: ANCEF 10 IV ×3 (06:24→22:02)
[2025-07-22 07:10] VITALS: BP 141/78
[2025-07-22] MEDS: HEPARIN 5000 UNITS SC ×2 (09:15→21:57)
[2025-07-22] MEDS: SANTYL OINTMENT 1 APPLIC TOPICAL ×2 (09:16→22:13)
[2025-07-22] MEDS: DESENEX/MITRAZOL/ZEASORB 1 APPLIC TOPICAL ×2 (09:18→22:11)
[2025-07-22] MEDS: DEBROX EAR DROPS 3 DROP OTIC (09:18)
[2025-07-22] MEDS: DAKIN'S SOLUTION 0.125% 1/4 STRENGTH 473 ML TOPICAL ×2 (09:19→22:12)
--- NOTE | 2025-07-22 12:33 | W.PN.HOSP.TC ---
Today's Communication/Plan
-
Ongoing discharge planning for SNF rehab
Assessment / Plan
Assessment / Plan
Sepsis secondary to infected sacral ulcer:
MSSA bacteremia
- Now with bacteremia, blood cultures growing Staph aureus, blood cultures and sacral wound cultures growing MSSA
- MRI of pelvis shows sacral osteo with no fluid collections
- No need for debridement, general surgery signed off
- Repeat blood culture has been negative
- ID recommended 6 weeks of IV Ancef therapy. PICC line has been ordered.
- Echocardiogram shows no evidence of vegetations
- Continue local wound care
Hyponatremia:
- Likely hypovolemic
- Initial serum sodium 121, appears somewhat chronic
- improved to 133.
DEEP - resolved
- Nephrology help appreciated
Sore throat
- add cepacol lozenge
- covid neg
DVT prophylaxis: Subcu heparin
CODE STATUS: Full code
Anticipated Discharge: Today
Subjective/Interval History
-
Date of Service: July 22, 2025
Resting comfortably in bed
No reported issues overnight
Objective Data
-
Vital Signs:
Vital Signs
Temp Pulse Resp BP Pulse Ox
97.8 F 79 16 141/78 96
07/22/25 07:10 07/22/25 07:10 07/22/25 07:10 07/22/25 07:10 07/22/25 07:10
I&O
07/21/25 07/22/25 07/23/25
06:59 06:59 06:59
Intake Total 1440 / 1440 840 / 840
Output Total 2375 / 2375 1725 / 1725
Balance -935 / -935 -885 / -885
Review of Systems
-
Respiratory: Reports No Symptoms
Cardiac: Reports No Symptoms
Abdomen/GI: Reports No Symptoms
Physical Exam
-
General: Comfortable
HEENT: Negative Oxygen
GI: Soft, Nontender, Nondistended and Normal Bowel Sounds
Neuro: Awake, Alert and Other (Paraplegic)
--- NOTE | 2025-07-22 12:34 | W.PN.ID1 ---
Date of Service
Date of Service: July 22, 2025
Today's Communication
Continue cefazolin.
Assessment / Plan
# MSSA bacteremia x 2 sets
# R ischium osteomyelitis with MSSA
# Leukocytosis - resolved
# Paraplegia since
- 07/17 bcx x 1 neg to date
- Repeat blood cx's x 2 neg to date.
- TTE: no gross vegetation
- CRP 142, ESR 87
- Continue cefazolin 2g IV q8h x 6 weeks through 08/27/25.
- PICC in place
- Follow weekly CBCP, CMP, ESR, CRP
-Infusion sheet submitted to renal case manager [id number].
- Local wound care and off load sacrum.
- SNF placement.
Conditions prior to admission:
Hypertension
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
Neurogenic bladder with chronic indwelling Oakley catheter
Bilateral lower extremity lymphedema
History of DVT of right lower extremity, perineal and popliteal veins status post IVC filter placement with subsequent removal
Right femoral shaft fracture status post surgical fixation
Chief Complaint
-: Bacteremia and Other (Sacral osteo)
Subjective / Review of Systems
No complaints.
Vital Signs / Physical Exam
Vital Signs
Vital Signs
Temp Pulse Resp BP Pulse Ox
97.8 F 79 16 141/78 96
07/22/25 07:10 07/22/25 07:10 07/22/25 07:10 07/22/25 07:10 07/22/25 07:10
Physical Exam
Constitutional: No Acute Distress
Eyes: No Conjunctival Hemorrhage and Sclera Anicteric
Cardiovascular: Regular Rate and S1/S2
Pulmonary: Clear
Gastrointestinal: Soft, Non Tender and Non Distended
Genito-Urinary: Oakley and Clear Urine; Negative CVA Tenderness
Extremities: Edema and Venous Insufficiency
Neurological: AO x 3
Lines: PICC (RUE no erythema)
Objective Data
Lab Data
Lab Results
07/19/25 06:32
07/20/25 06:40
ESR 87 mm/hour (0-20) H 07/18/25 07:02
Estimated Creat Clear 80 ml/min 07/20/25 06:40
Lactic Acid 1.1 mmol/L (0.7-2.0) 07/15/25 15:30
Total Bilirubin 0.3 mg/dl (0.2-1.3) 07/19/25 06:32
AST 19 U/L (17-59) 07/19/25 06:32
ALT 10 U/L (0-50) 07/19/25 06:32
Alkaline Phosphatase 84 U/L (38-126) 07/19/25 06:32
C-Reactive Protein 142.40 mg/L (0.0-10.00) H 07/18/25 07:03
Most recent labs reviewed.
Micro Results:
07/15/25 15:34 Blood Culture - Final
Blood/Venous S aureus-Methicillin Sensitive
Gram Stain - Final
07/15/25 15:34 Blood Culture - Final
Blood/Venous S aureus-Methicillin Sensitive
Gram Stain - Final
07/18/25 08:38 Blood Culture - Preliminary
Blood/Venous No Growth in 4 days- Final report to follow
07/18/25 07:02 Blood Culture - Preliminary
Blood/Venous No Growth in 4 days- Final report to follow
07/16/25 23:04 Blood Culture - Final
Blood/Venous No Growth - Final Report
07/15/25 15:30 Wound Culture - Final
Sacral S aureus-Methicillin Sensitive
Gram Stain - Final
07/15/25 22:59 MRSA Screen - Final
Nose No Methicillin Resistant Staphylococcus aureus isolated.
07/16/25 Pelvic MRI: Band-shaped soft tissue defect extending from the right posterior skin margin of the buttocks to the posterior margin of the ischium. This is compatible with decubitus ulcer. Enhancing intermediate T1-weighted signal involving
the marrow of the adjacent right posterior ischium, and findings are highly suggestive of osteomyelitis. No evidence for abscess collection.
[2025-07-22] MEDS: TUMS CHEWABLE TABLET 400 MG PO (13:31)
[2025-07-22 15:48] VITALS: BP 128/82
--- NOTE | 2025-07-22 15:54 | CM ---
CM following re: discharge planning.
Reviewed [pt's chart, met with pt.
According to MD pt is medically stable to be discharged. Pt is aware, went back and fourth with SNF choices and finally expressed his agreement to go to [facility].
CM spoke to [facility] liaison and she confirmed they do have a bed available and pt is accepted for admission with an auth.
CM called [place] [facility] [phone], a case initiated to obtain an auth for SNF level of care at [facility], pending reference number [id number]. Requested pt's clinical faxed to [phone]
Awaiting for an auth.
D/C plan: [facility]
CM will follow to assist pt with discharge to [facility].
[2025-07-22] MEDS: DEBROX EAR DROPS 1 DROP OTIC (22:12)
[2025-07-22 23:23] VITALS: BP 146/81
[2025-07-23] MEDS: ANCEF 10 IV ×2 (05:45→13:23)
[2025-07-23 06:00] VITALS: BMI 26.0
[2025-07-23 07:05] VITALS: BP 164/88
--- NOTE | 2025-07-23 09:09 | W.PN.ID1 ---
Date of Service
Date of Service: July 23, 2025
Today's Communication
- Continue cefazolin 2g IV q8h x 6 weeks through 08/27/25.
Assessment / Plan
# MSSA bacteremia x 2 sets
# R ischium osteomyelitis with MSSA
# Leukocytosis - resolved
# Paraplegia since
- 07/17 bcx x 1 neg to date
- Repeat blood cx's x 2 neg to date.
- TTE: no gross vegetation
- CRP 142, ESR 87
- Continue cefazolin 2g IV q8h x 6 weeks through 08/27/25.
- Follow weekly CBCP, CMP, ESR, CRP
-Infusion sheet submitted to case management associate 07/20.
- Local wound care and off load sacrum.
- SNF placement.
Conditions prior to admission:
Hypertension
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
Neurogenic bladder with chronic indwelling Oakley catheter
Bilateral lower extremity lymphedema
History of DVT of right lower extremity, perineal and popliteal veins status post IVC filter placement with subsequent removal
Right femoral shaft fracture status post surgical fixation
Chief Complaint
-: Bacteremia and Other (Sacral osteo)
Subjective / Review of Systems
Enjoying his breakfast.
Awaiting authorization for SNF/rehab.
Vital Signs / Physical Exam
Vital Signs
Vital Signs
Temp Pulse Resp BP Pulse Ox
97.5 F 59 16 164/88 98
07/23/25 07:05 07/23/25 07:05 07/23/25 07:05 07/23/25 07:05 07/23/25 07:05
Physical Exam
Constitutional: No Acute Distress
Eyes: No Conjunctival Hemorrhage and Sclera Anicteric
Cardiovascular: Regular Rate and S1/S2
Pulmonary: Clear
Gastrointestinal: Soft, Non Tender and Non Distended
Genito-Urinary: Oakley and Clear Urine; Negative CVA Tenderness
Extremities: Edema and Venous Insufficiency
Neurological: AO x 3
Lines: PICC (RUE no erythema)
Objective Data
Lab Data
Lab Results
07/19/25 06:32
07/20/25 06:40
ESR 87 mm/hour (0-20) H 07/18/25 07:02
Estimated Creat Clear 80 ml/min 07/20/25 06:40
Lactic Acid 1.1 mmol/L (0.7-2.0) 07/15/25 15:30
Total Bilirubin 0.3 mg/dl (0.2-1.3) 07/19/25 06:32
AST 19 U/L (17-59) 07/19/25 06:32
ALT 10 U/L (0-50) 07/19/25 06:32
Alkaline Phosphatase 84 U/L (38-126) 07/19/25 06:32
C-Reactive Protein 142.40 mg/L (0.0-10.00) H 07/18/25 07:03
Most recent labs reviewed.
Micro Results:
07/18/25 08:38 Blood Culture - Final
Blood/Venous No Growth - Final Report
07/18/25 07:02 Blood Culture - Final
Blood/Venous No Growth - Final Report
07/15/25 15:34 Blood Culture - Final
Blood/Venous S aureus-Methicillin Sensitive
Gram Stain - Final
07/15/25 15:34 Blood Culture - Final
Blood/Venous S aureus-Methicillin Sensitive
Gram Stain - Final
07/16/25 23:04 Blood Culture - Final
Blood/Venous No Growth - Final Report
07/15/25 15:30 Wound Culture - Final
Sacral S aureus-Methicillin Sensitive
Gram Stain - Final
07/15/25 22:59 MRSA Screen - Final
Nose No Methicillin Resistant Staphylococcus aureus isolated.
07/16/25 Pelvic MRI: Band-shaped soft tissue defect extending from the right posterior skin margin of the buttocks to the posterior margin of the ischium. This is compatible with decubitus ulcer. Enhancing intermediate T1-weighted signal involving
the marrow of the adjacent right posterior ischium, and findings are highly suggestive of osteomyelitis. No evidence for abscess collection.
[2025-07-23] MEDS: DAKIN'S SOLUTION 0.125% 1/4 STRENGTH 100 ML TOPICAL (09:42)
[2025-07-23] MEDS: DESENEX/MITRAZOL/ZEASORB 1 APPLIC TOPICAL (09:42)
[2025-07-23] MEDS: DEBROX EAR DROPS 3 DROP OTIC (09:42)
[2025-07-23] MEDS: HEPARIN 5000 UNITS SC (09:43)
[2025-07-23] MEDS: SANTYL OINTMENT 1 APPLIC TOPICAL (09:44)
--- NOTE | 2025-07-23 11:01 | CM ---
Addendum entered by Montez Carrillo 07/23/25 12:58:
supervisor liquid yeast time 15:30.
Addendum entered by Montez Carrillo 07/23/25 11:04:
Auth information forwarded to [facility] liaison and she confirmed that pt is accepted for admission today.
[facility] to arrange ambulance transport BLS, [facility] completed and left with [facility] SNF nursing report: [phone]
Discharge instructions fax: [phone]
D/C plan: [facility].
Original Note:
CM following re: discharge planning.
Reviewed pt's chart, met with pt.
According to MD pt is medically stable to be discharged today. Pt is aware, expressed his agreement. IMM reviewed, placed on chart, pt has a copy.
[facility] approved pt for 5 initial days of SNF levelof care at [facility] from today 07/23/25 till 07/27/25 with LCD and NRD 07/29/25. Auth: [id number]
Auth information forwarded to [facility]
--- NOTE | 2025-07-23 11:26 | W.DCSUMMARY ---
Discharge Summary
Discharge Data
Date of Admission: 07/15/25
Date of Discharge: 07/23/25
-
Pending Results: No
Hospital Course
Discharging Physician : Dr Dg Cunningham
Disposition : To SNF
Primary care physician : VINAY Garrido
Principal Discharge diagnosis :
Sepsis secondary to infected sacral decubitus ulcer
Methicillin-sensitive Staphylococcus aureus bacteremia
Hyponatremia
Acute kidney injury
Sore throat
Chronic Discharge diagnosis :
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
Chronic indwelling Oakley catheter
Chronic lymphedema
Essential hypertension
Hearing loss
History of right femoral fracture postsurgical fixation
History of peroneal/popliteal deep venous thrombosis
History of IVC filter placement and removal
History of COVID-19 viral infection in
Physical examination:
General: Comfortable
HEENT: Negative Oxygen
Chest : Clear to auscultation
Heart : Ns1/s2, rrr
GI: Soft, Nontender, Nondistended and Normal Bowel Sounds
Neuro: Awake, Alert and Other (Paraplegic)
Skin : stage IV sacral decubitus ulcer
Hospital Course :
Patient is a 80-year-old male with no mentioned past medical history came to ER with chronic sacral wound being infected with foul smell. In ER on evaluation patient was noted to be in renal failure with associated hyponatremia. Patient was
admitted to hospital for further management.
Patient underwent an MRI of her pelvis which showed sacral osteomyelitis with no localized fluid collection. General surgery evaluated patient and there was no indication for debridement. Patient was maintained on broad-spectrum antibiotic and
infectious disease physicians were following the patient. As part of workup blood cultures were collected which later came back positive for Staphylococcus aureus identified later for being methicillin sensitive. An echocardiogram was done which
ruled out any endocarditis. Blood culture clearance was achieved before patient being transition to 6 weeks of IV Ancef therapy. Patient is being placed to [facility] for continual of wound care and finishing antibiotic therapy.
For patient renal failure and hyponatremia nephrology was involved in care. Renal failure resolved rapidly with IV hydration. Hyponatremia also simultaneously improved with volume repletion and likely felt to be hyponatremic and nature.
Important imaging findings :
None
Procedure findings :
None
Discharge Plan
-
Patient Disposition: Jail/SNF
Discharge Diagnosis/Procedures: MSSA bacteremia, Stage IV sacral decubitus, DEEP , Hyponatremia
Condition: Fair
Diet: Regular
Activity: As tolerated
Driving Restrictions: No driving
Bathing Restrictions: OK to Shower
Activity Restrictions/Additional Instructions:
Wound Care Instructions
R ischial wound-clean with 1/4 strength Dakin's solution, no sting skin prep to rigo wound. Pack with 1/4 strength Dakin's moistened gauze, cover with gauze pads, then silicone border foam, change Bid and prn drainage.
L lateral ankle ulcer-clean with saline or 1/4 strength Dakin's, Santyl ointment prn necrotic tissue, alginate, silicone border foam, change daily and prn drainage.
L heel, L lateral upper calf-foam dressing, change q 3 days and prn loosened dressing.
Miconazole powder to rigo/groin red skin bid.
Bilateral knee high Tubigrip as tolerated; remove q hs; reapply q am.
Air mattress (i.e. Centrella Max Wide air bed)
Turning schedule
Elevate heels off bed; soft heel relief boots as tolerated; bariatric air chair cushion under boots/calves.
High end pressure redistributing chair cushion (i.e. Roho); limit sitting in wheelchair to 1 hr bid with Roho wheelchair cushion.
Follow up at wound care center call for an appointment.
Referrals:
Susan Zavala CRNP [Family Provider, General] - in one week
Denice Whitman MD [Active, Infectious Diseases] - As needed
Prescriptions:
New
cefazolin 10 gram Recon Soln
2 g IV Q8H Qty: 30 0RF
Rx Instructions:
FOR DOCUMENTATION
Last dose 08/27/25
nifedipine [Procardia XL] 30 mg tablet extended release 24hr
30 mg PO DAILY Qty: 30 0RF
Continued
aspirin,buffd-calcium carb-mag [Bufferin] 325 mg Tablet
325 mg PO DAILYPRN PRN (Reason: headaches)
Discontinued
cephalexin 500 mg Capsule
500 mg PO QID
Rx Instructions:
for 10 days starting 07/13/25
Discharge Orders:
Discharge Patient (As Directed); Ordered 07/23/25
Ordered By: Dg Cunningham
Discharge Date and Time
Print Language: DANISH
--- NOTE | 2025-07-23 15:30 | WOUNDNOTE ---
WOC RN note: t/c Francisca Kamara [facility], spoke with Maribel from admissions who stated they have an air mattress for patient.
[2025-07-23 15:40] VITALS: BP 160/91
[2025-07-23 18:18] VITALS: BP 158/75
== END 2025-07-23 19:26 | DRG 871 ==
LOC: 2 NORTH 16:48
PROVIDERS: Clinical Nurse Specialist Family Health; Internal Medicine; Specialist; ADMITTING PHYSICIAN Hospitalist; ATTENDING PHYSICIAN Hospitalist; CONSULT PHYSICIAN Internal Medicine; CONSULT PHYSICIAN Internal Medicine Infectious Disease; EMERGENCY PHYSICIAN Emergency Medicine; FAMILY PHYSICIAN Nurse Practitioner Adult Health; OTHER PHYSICIAN Surgery
DX: A41.01 Sepsis due to Methicillin susceptible Staphylococcus aureus (principal); L89.154 Pressure ulcer of sacral region, stage 4; E87.1 Hypo-osmolality and hyponatremia; N17.9 Acute kidney failure, unspecified; G82.20 Paraplegia, unspecified; M46.28 Osteomyelitis of vertebra, sacral and sacrococcygeal region; I89.0 Lymphedema, not elsewhere classified; I10 Essential (primary) hypertension; Z86.16 Personal history of COVID-19; D50.9 Iron deficiency anemia, unspecified; H61.23 Impacted cerumen, bilateral; Z86.718 Personal history of other venous thrombosis and embolism; Z95.828 Presence of other vascular implants and grafts; N31.9 Neuromuscular dysfunction of bladder, unspecified; Z79.899 Other long term (current) drug therapy; L89.211 Pressure ulcer of right hip, stage 1; L89.621 Pressure ulcer of left heel, stage 1
CPT/HCPCS: 71045; 72197; 80048; 80053; 80202; 83605; 83930; 83935; 84300; 84443; 85025; 85652; 86140; 87040; 87070; 87147; 87154; 87186; 87205; 87811; 93306; 96365; 97163; 97167; 99285; A9575